=== PATIENT | male | born 2000 | race Caucasian/White ===

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

== ENCOUNTER 2019-12-02 13:14 | Emergency (ER) | payer OTHER, SELFPAY ==
[2018-12-30 10:44] VITALS: BMI 30.3
[2019-12-02 13:15] VITALS: BP 135/82; PULSE 90; RESP 17; TEMP 36.1; O2SAT 96; BMI 35.0
--- NOTE | 2019-12-02 13:42 | CT_ITS ---
STUDY: CT ABDOMEN AND PELVIS WITH CONTRAST REASON FOR EXAM: Male, 19 years old. ABDOMINAL PAIN RIGHT UPPER AND MID ABDOMEN RADIATION DOSAGE (If Supplied By Facility): CTDIvol = ( 16.16 ) mGy, DLP = ( 1234.06 ) mGycm TECHNIQUE: Transaxial images were obtained from the dome of the diaphragm to the symphysis pubis with oral contrast. Oral and amp; IV Gastrografin and amp; 100mL Isovue-300 was administered. Sagittal and coronal images were reconstructed. Individualized dose optimization techniques were used for this CT. COMPARISON: None. FINDINGS: FINDINGS: The visualized lung bases are unremarkable. Normal liver. No intrahepatic biliary duct dilatation or liver mass. Normal gallbladder and extrahepatic biliary system. Normal spleen. Normal pancreas. Normal bilateral adrenal glands. Normal right kidney. Normal left kidney. No hydronephrosis or renal masses. No large stones. Normal visualized stomach. Normal small intestine. Mild thickening of the wall of the proximal transverse colon in the right upper quadrant noted. Mild thickening is also seen in the distal transverse colon and proximal aspect of the descending colon likely due to nonspecified colitis. No bowel dilatation or obstruction. No free air or free fluid. The appendix is visualized and appears normal. Normal abdominal aorta. Normal inferior vena cava. Normal retroperitoneum. Normal urinary bladder. Normal abdominal wall. Normal osseous structures. CT/Abdomen/Pelvis WITH Contrast IMPRESSION: 1. Mild thickening of the wall of the proximal transverse colon in the right upper quadrant noted. Mild thickening is also seen in the distal transverse colon and proximal aspect of the descending colon likely due to nonspecified colitis. 2. No bowel dilatation or obstruction. No free air or free fluid. Electronically Signed: Arturo Tobin MD at 16:55 EDT , Service support ,
--- NOTE | 2019-12-02 13:43 | ED.DCSUM_ITS ---
History of Present Illness Chief Complaint: Abd Pain Informant: Patient Narrative: Patient presents the emergency room with a 2-day history of abdominal pain. Patient states the pain comes in waves and is situated in his epigastrium and occasionally goes to his back into the right upper quadrant. He states [facility] and was advised to come to emergency as he may have appendicitis or gallbladder allergy. Patient denies any nausea vomiting. No fevers. Patient notes normal bowel movements. He states that earlier in the day he had a large slice of pizza which made his symptoms worse. Past Medical History - Allergies and Home Meds Allergies/Adverse Reactions: Allergies No Known Allergies Allergy (Verified 12/02/19 13:14) Primary Care Physician: Mario Larios DO [Primary Care Provider] - Smoking Status: Current every day smoker Review of Systems General: Denies: Chills, Fever, Sweats Eyes: Denies: Visual changes - bilaterally, Diplopia ENT: Denies: Rhinorrhea, Sore throat Cardiovascular: Denies: Chest pain, Palpitations Respiratory: Denies: Dyspnea, Cough, Dyspnea on exertion Gastrointestinal: Reports: Abdominal pain. Denies: Nausea, Vomiting, Diarrhea, Melena, Hematochezia Genitourinary: Denies: Dysuria, Hematuria, Frequency Musculoskeletal: Denies: Back pain, Extremity Pain Skin: Denies: Rash, Wounds Neurological: Denies: Headache, Weakness, Numbness Physical Exam Vital Signs/Narrative: Vital Signs Temp Pulse Resp BP Pulse Ox 12/02/19 13:15 96.9 F L 90 17 135/82 H 96 Inital Vital Signs reviewed: Yes General: Well nourished, Well developed, No Acute Distress Head: Normocephalic, Atraumatic Eyes: Perrl, EOMI ENT: Moist mucous membranes, No rhinorrhea Neck: Supple, Nontender Cardiovascular: Regular rate, Regular rhythm, No murmurs Respiratory: No distress, CTA bilaterally, Chest nontender Abdomen: Soft, Nondistended, Normal bowel sounds, Tender - Patient reports tenderness to palpation of the right lower quadrant. He has no pain over the right upper quadrant or epigastrium on initial examination. Back: Nontender, Normal Inspection Extremities: Nontender, No edema Skin: Normal color, No rash Neurological: Alert, Oriented x3, Cranial nerves II-XII grossly intact, Normal Strength, Normal Sensation Psychological: Normal affect, Normal Mood Diagnostic/Tx/Re-eval Laboratory Last Values WBC 10.0 K/mm3 (4.4-11.0) 12/02/19 13:41 RBC 4.96 M/mm3 (4.6-6.2) 12/02/19 13:41 Hgb 14.9 g/dL (13.0-16.5) 12/02/19 13:41 Hct 45.0 % (40-54) 12/02/19 13:41 MCV 90.7 fL (80-94) 12/02/19 13:41 MCH 30.0 pg (27.0-32.0) 12/02/19 13:41 MCHC 33.1 g/dL (32-36) 12/02/19 13:41 RDW Std Deviation 40.3 fl (35.1-43.9) 12/02/19 13:41 RDW Coeff of Beverly 12.2 % (11.6-14.6) 12/02/19 13:41 Plt Count 212 K/mm3 (150-450) 12/02/19 13:41 MPV 10.3 fl (6.2-12.0) 12/02/19 13:41 Immature Gran % (Auto) 0.200 % (0.0-0.9) 12/02/19 13:41 Neut % (Auto) 64.8 % (47-70) 12/02/19 13:41 Lymph % (Auto) 23.6 % (19-41) 12/02/19 13:41 Baker % (Auto) 6.7 % (0-10) 12/02/19 13:41 Eos % (Auto) 4.4 % (0-5) 12/02/19 13:41 Baso % (Auto) 0.3 % (0-1) 12/02/19 13:41 Absolute Neuts (auto) 6.4 X10^3/uL (2.0-7.7) 12/02/19 13:41 Absolute Lymphs (auto) 2.35 X10^3/uL (0.83-4.51) 12/02/19 13:41 Nucleated RBC % 0 % (0-5) 12/02/19 13:41 Sodium 140 mmol/L (136-145) 12/02/19 13:41 Potassium 4.0 mmol/L (3.5-5.1) 12/02/19 13:41 Chloride 107 mmol/L (98-107) 12/02/19 13:41 Carbon Dioxide 27.0 mmol/L (21.0-32.0) 12/02/19 13:41 Anion Gap 6 (5-15) 12/02/19 13:41 BUN 19 mg/dL (7-18) H 12/02/19 13:41 Creatinine 0.99 mg/dL (0.70-1.30) 12/02/19 13:41 Estim Creat Clear Calc 119.02 ml/min 12/02/19 13:41 Est GFR (MDRD) Af Amer 123 mL/min (>60) 12/02/19 13:41 Est GFR (MDRD) Non-Af 102 mL/min (>60) 12/02/19 13:41 BUN/Creatinine Ratio 19.2 RATIO (10-20) 12/02/19 13:41 Glucose 94 mg/dL (74-106) 12/02/19 13:41 Calcium 9.4 mg/dL (8.5-10.1) 12/02/19 13:41 Total Bilirubin 0.40 mg/dL (0.20-1.00) 12/02/19 13:41 AST 18 U/L (15-37) 12/02/19 13:41 ALT 30 U/L (16-61) 12/02/19 13:41 Alkaline Phosphatase 93 U/L (45-117) 12/02/19 13:41 Total Protein 8.0 g/dL (6.4-8.2) 12/02/19 13:41 Albumin 4.1 g/dL (3.2-5.0) 12/02/19 13:41 Globulin 3.9 g/dL (2.2-4.2) 12/02/19 13:41 Albumin/Globulin Ratio 1.1 RATIO (0.9-2.4) 12/02/19 13:41 Lipase 51 U/L (73-393) L 12/02/19 13:41 Urine Color Yellow (Yellow) 12/02/19 13:30 Urine Clarity Clear (Clear) 12/02/19 13:30 Urine pH 6.0 (5.0 - 8.0) 12/02/19 13:30 Ur Specific Greene 1.025 (1.002-1.030) 12/02/19 13:30 Urine Protein Negative mg/dl (Negative) 12/02/19 13:30 Urine Glucose (UA) Normal mg/dl (Normal) 12/02/19 13:30 Urine Ketones Negative mg/dl (Negative) 12/02/19 13:30 Urine Occult Blood Negative /ul (Negative) 12/02/19 13:30 Urine Nitrite Negative (Negative) 12/02/19 13:30 Urine Bilirubin Negative mg/dL (Negative) 12/02/19 13:30 Urine Urobilinogen Normal mg/dl (Normal) 12/02/19 13:30 Ur Leukocyte Esterase Negative /ul (Negative) 12/02/19 13:30 Urine RBC 0 SEEN /hpf (0-5) 12/02/19 13:30 Urine WBC 0-5 SEEN /hpf (0-5) 12/02/19 13:30 Ur Squamous Epith Cells 0 SEEN /hpf (0-5) 12/02/19 13:30 Urine Bacteria RARE /hpf (None Seen) 12/02/19 13:30 Urine Mucus 0 SEEN /hpf (<or=2+) 12/02/19 13:30 ED Disposition - Plan for ED Patient: Disposition: Home or Assisted Living Diagnosis: Colitis Instructions: ED Colitis Ulcerative Prescriptions: Amox/Clavulanate Tablet [Augmentin Tablet] 875 mg PO Q12H #20 tab Prescription Printed Hydrocodone Bitart/Apap 5-325 [Drew 5MG-325MG] 1 tab PO Q6H PRN PRN 3 Days #12 tab PRN Reason: Pain Prescription Printed Ondansetron [Zofran Odt] 4 mg PO Q8H PRN PRN #10 tab PRN Reason: Nausea Prescription Printed Referrals: Mario Larios, [Primary Care Provider] - As soon as possible Vinnie Banks MD [NON-STAFF] - As soon as possible Additional Instructions: Her concern today is that you do have colitis on CT. Given your age we are concerned about conditions such as ulcerative colitis or Crohn's disease. You really need to see a computer project manager and have a formal colonoscopy. Locally Dr. Banks is a computer project manager here in [place]. In [place] there are numerous options including the [facility]
[2019-12-02 13:52] LABS: Absolute Lymphocyte Count 2.35 X10^3/uL (0.83-4.51); Absolute Neutrophil Count 6.4 X10^3/uL (2.0-7.7); Basophil# 0.03 X10^3/uL; Basophil% 0.3 % (0-1); Eosinophil# 0.44 X10^3/uL; Eosinophils% 4.4 % (0-5); Hemoglobin 14.9 g/dL (13.0-16.5); Lymphocyte # 2.35 X10^3/ul (4.0); Lymphocyte % 23.6 % (19-41); Mean Corp Hgb Conc 33.1 g/dL (32-36); Mean Corpuscular Volume 90.7 fL (80-94); Mean Platelet Vol. 10.3 fl (6.2-12.0); Monocyte# 0.67 X10^3/uL; Monocyte% 6.7 % (0-10); NRBC Flagged by Analyzer 0 % (0-5); Neutrophil # 6.44 X10^3/uL (2.7-7.7); Neutrophil % 64.8 % (47-70); Platelet Count 212 K/mm3 (150-450); RBC Distribution Width CV 12.2 % (11.6-14.6); RBC Distribution Width SD 40.3 fl (35.1-43.9); Red Blood Count 4.96 M/mm3 (4.6-6.2)
[2019-12-02] MEDS: 0.9% Normal Saline 1,000 ML 125 ML IV (13:56)
[2019-12-02] MEDS: Ketorolac 30 MG/ML Syringe IV (13:56)
[2019-12-02 14:07] LABS: ALB/GLOB Ratio 1.1 RATIO (0.9-2.4); AST(SGOT) 18 U/L (15-37); Alanine Aminotransfer ALT/SGPT 30 U/L (16-61); Albumin, Serum 4.1 g/dL (3.2-5.0); Alkaline Phosphatase 93 U/L (45-117); Anion Gap 6 (5-15); BUN 19 mg/dL (7-18); BUN/Creat Ratio 19.2 RATIO (10-20); Calcium,Total 9.4 mg/dL (8.5-10.1); Chloride 107 mmol/L (98-107); Creatinine, Serum 0.99 mg/dL (0.70-1.30); EST Glomerular Filtration Rate 102 mL/min (>60); Est Glom Filt Rate - Afr Amer 123 mL/min (>60); Estimated Creatinine Clearance 119.02 ml/min; Globulin 3.9 g/dL (2.2-4.2); Glucose 94 mg/dL (74-106); Lipase 51 U/L (73-393); Sodium Level 140 mmol/L (136-145)
[2019-12-02 15:06] LABS: Mucous, Urine 0 SEEN /hpf (<or=2+); Red Blood Cells-Urine 0 SEEN /hpf (0-5); Squamous Epithelial Cells - UA 0 SEEN /hpf (0-5)
[2019-12-02 15:19] LABS: Color, Urine Yellow (Yellow); Glucose, Dipstick Normal (Normal); Ketone-Dipstick Negative (Negative); Leukocyte Esterase-Dipstick Negative /ul (Negative); Nitrite-Dipstick Negative (Negative); Occult Blood-Urine Negative /ul (Negative); Protein-Dipstick Negative (Negative); Specific Gravity, Urine 1.025 (1.002-1.030); Urine Bilirubin Dipstick Negative (Negative); Urine Clarity Clear (Clear); Urine Urobilinogen Normal (Normal)
[2019-12-02 15:26] LABS: Bacteria RARE /hpf (None Seen); White Blood Cells 0-5 SEEN /hpf (0-5)
[2019-12-02 16:36] VITALS: BP 137/87; O2SAT 96
[2019-12-02 17:26] VITALS: BP 128/93; PULSE 81; RESP 16; O2SAT 96
== END 2019-12-02 17:27 | disposition home or self-care (01) ==
PROVIDERS: Emergency Provider Emergency Medicine; PCP Family Medicine
DX: K52.9 Noninfective gastroenteritis and colitis, unspecified (principal); F17.200 Nicotine dependence, unspecified, uncomplicated; Z79.899 Other long term (current) drug therapy
CPT/HCPCS: 74177; 80053; 81001; 83690; 85025; 96361; 96374; 99283; J7030; Q9967; A4216

== ENCOUNTER 2020-12-17 10:08 | Emergency (ER) | payer OTHER, SELFPAY ==
[2020-12-17 10:09] VITALS: BP 157/103; PULSE 109; RESP 18; TEMP 36.6; O2SAT 100; BMI 35.6
--- NOTE | 2020-12-17 10:21 | EKG12_ITS ---
Test Reason : CP Blood Pressure : / mmHG Vent. Rate : 099 BPM Atrial Rate : 099 BPM P-R Int : 136 ms QRS Dur : 100 ms QT Int : 346 ms P-R-T Axes : 037 056 036 degrees QTc Int : 444 ms Normal sinus rhythm with sinus arrhythmia Normal ECG No previous ECGs available Confirmed by CRICKET PASCAL, KARLI ([id number]), script editor TOMYM STARKEY ([id number]) on 12/25/2020 8:41:26 AM Referred By: TAVARES Confirmed By:HIMA HARLEY MD
--- NOTE | 2020-12-17 10:25 | EDS_ITS ---
HPI History of Present Illness Chief Complaint: Chest Pain Informant: patient Onset/Context/Timing Onset: Weeks (Pain started 1 week ago while driving home) Activity at onset: sudden and rest Timing: Intermittent Quality: Positive for Aching and Tightness Location: Left Parasternal Current Severity: 6/10 Maximum Severity: 10/10 Worsened By: - (Possibly stress); Not Worsened By Exertion, Movement of Arm, Movement of Torso, Eating, Palpation, Breathing and Coughing Relieved By: Nothing Associated Symptoms: Positive for Nausea, Vomiting, Dyspnea and - (Diarrhea); Negative for Diaphoresis, Cough, Fever, Lightheadedness, Acid Reflux and Palpitations Narrative Narrative: Patient is a 20-year-old male with history of asthma who admits to smoking and drinking. He states he has a couple drinks a evening. He states last Thursday while driving home he developed chest discomfort. He states he was not anxious. Does have history of anxiety. He has not seen a physician in some time. Brother has history of Marfan syndrome. He states he was assessed at [facility] and told he is clear for Marfan's. He does report nausea and vomiting. He reports 6 loose stools per day. He describes the tightness as a band sensation left pectoral area. Does not radiate. The nausea and vomiting is not associated with the chest discomfort. Chest discomfort is varied in duration. Prior Similar Symptoms: No CVD Risk Factors: Positive for Smoking; Negative for Hypertension, Diabetes, Hypercholesterolemia and Family History 1' </=55 PE Risk Factors: Negative for Recent Travel/Surgery, Recent Immobilization, Prior DVT or PE and Cancer TAD Risk Factors: Positive for Family History; Negative for Marfan's Syndrome and Hypertension [facility] Medical History Colitis Home Medications NK 12/17/20 [History Last Taken Unknown] Allergy/AdvReac Type Severity Reaction Status Date / Time No Known Allergies Allergy Verified 12/02/19 13:14 Family History Brother Heart disease Aunt Cancer pancreatic Social History (Updated 12/17/20 @ 10:[address] Gilles Albright MD) household members: other details: Patient is single. current occupation: Patient owns his own business. Smoking Status: Current every day smoker tobacco type: cigarettes Tobacco: How many years used: 1 alcohol intake: current alcohol intake frequency: a few times a month substance use type: marijuana what type of physical activity do you participate in: other details: active lifestyle ROS ROS ED Constitutional Constitutional ED: Denies chills, fever(s), subjective or sweats Eyes Eyes: Reports none ENT ENT ED: Denies ear pain, rhinorrhea or sore throat Cardiovascular Cardiovascular: Reports as per HPI and chest pain; Denies orthopnea or paroxysmal nocturnal dyspnea Respiratory/Chest Respiratory/Chest: Reports dyspnea; Denies cough, dyspnea on exertion, orthopnea, paroxysmal nocturnal dyspnea or sputum Gastrointestinal Gastrointestinal: Reports abdominal pain, diarrhea, nausea and vomiting; Denies constipation or melena Genitourinary Genitourinary ED: Denies dysuria, hematuria or urinary frequency Musculoskeletal Musculoskeletal: Denies arthralgias, back pain, myalgias or neck pain Integumentary Denies rash Neurologic Neurologic: Reports weakness; Denies headache(s) or paresthesias Psychiatric Psychiatric: Reports anxiety; Denies depression Hematologic/Lymphatic Hematologic/Lymphatic: Denies easy bleeding or easy bruising EXAM Physical Exam Const Vital Signs: 12/17/20 10:09 12/17/20 11:56 Temperature 97.8 F Temperature Source Temporal Pulse Rate 109 H 69 Respiratory Rate 18 16 Blood Pressure 157/103 H 130/92 H Blood Pressure Mean 121 104 Pulse Ox 100 98 Oxygen Delivery Method Room Air Room Air Positive well nourished, well developed and obese General Appearance ED: well developed and NAD Nutritional Appearance: obese HEENT Reports TM's clear and dry mucous membranes normocephalic and atraumatic Tympanic Membrane ED: Yes TM's clear Mouth ED: Yes dry mucous membranes Mouth: dry mucous membranes Eyes PERRL and EOMs intact bilaterally General Eye ED: Negative for pale conjunctiva or scleral icterus Neck no lymphadenopathy, supple and no JVD Chest Wall inspection of chest normal and palpation of chest normal Resp normal respiratory effort and clear to auscultation bilaterally Cardio regular rate, regular rhythm, S1 normal heart sound and S2 normal heart sound GI normal to inspection, nondistended, normoactive bowel sounds, soft to palpation and non-tender Back/Spine no CVA tenderness and no thoracic nor lumbar tenderness Cervical Spine: Negative for cervical spine tenderness Extremity normal to inspection General Extremety ED: Negative for tenderness Neuro oriented x3, CN's II-XII intact bilaterally and no sensory deficits noted Sensorium / Orientation: awake and alert Psych mental status grossly normal Skin no rashes or lesions noted and no wounds General Skin Exam: jaundice Heart Score History: Slightly/Non-Suspicious ECG: Normal Age: </= 45 years Risk Factors: 1 or 2 Risk Factors Troponin: </= Normal Limit Score: 1 MDM MDM MDM Narrative Medical decision making narrative: Presents with atypical chest pain. This may be due to stress. Patient is PERC negative. Patient's other symptoms are due to viral illness. He denies exposure to anyone with Covid. He denies loss of taste or smell. Lab Data Attestation: I reviewed the patient's lab results. Lab results narrative: Troponin is normal. Patient was informed of his lab results. He was informed that his pressure is still slightly elevated and should follow-up with his doctor. Suspect this is due to anxiety. Labs: Laboratory Results - last 24 hr 12/17/20 12/17/20 10:44 10:44 WBC 8.3 RBC 5.19 Hgb 15.8 Hct 47.0 MCV 90.6 MCH 30.4 MCHC 33.6 RDW Std Deviation 41.0 RDW Coeff of Beverly 12.5 Plt Count 222 MPV 10.3 Immature Gran % (Auto) 0.500 Neut % (Auto) 62.1 Lymph % (Auto) 28.2 Saline % (Auto) 6.3 Eos % (Auto) 2.3 Baso % (Auto) 0.6 Absolute Neuts (auto) 5.1 Absolute Lymphs (auto) 2.33 Nucleated RBC % 0 Sodium 137 Potassium 4.1 Chloride 105 Carbon Dioxide 27.0 Anion Gap 5 BUN 14 Creatinine 1.05 Estim Creat Clear Calc 111.29 Est GFR (MDRD) Af Amer 114 Est GFR (MDRD) Non-Af 94 BUN/Creatinine Ratio 13.3 Glucose 97 Calcium 9.4 Troponin I High Sens 3 EKG Initial EKG: Attestation: I personally reviewed and interpreted this EKG as follows: Interpretation: Sinus Rhythm (Respiratory variance/sinus arrhythmia. Normal sinus rhythm with a ventricular rate of 99. MD interval 236 ms. QRS duration 100 ms. QT duration 346 ms. [place] is normal.) Discharge Plan Triage Chief Complaint: Chest Pain ED Provider: Gilles Albright Dx/Rx/DC Orders Clinical Impression: Non-cardiac chest pain, Anxiety, High blood pressure Instructions: ED Chest Pain, Noncardiac, ED Hypertension, To Be Confirmed Prescriptions: No Action NK RF: 0 Primary Care Provider: Mario Larios Referrals: Mario Larios, [Primary Care Provider] - 1-2 Weeks Disposition Disposition: Home, Self Care
[2020-12-17] MEDS: 0.9% Normal Saline 1,000 ML 1000 ML IV (10:48)
[2020-12-17 10:52] LABS: Absolute Lymphocyte Count 2.33 X10^3/uL (0.83-4.51); Absolute Neutrophil Count 5.1 X10^3/uL (2.0-7.7); Basophil# 0.05 X10^3/uL; Basophil% 0.6 % (0-1); Eosinophil# 0.19 X10^3/uL; Eosinophils% 2.3 % (0-5); Hemoglobin 15.8 g/dL (13.0-16.5); Lymphocyte # 2.33 X10^3/ul (0.83-4.51); Lymphocyte % 28.2 % (19-41); Mean Corp Hgb Conc 33.6 g/dL (32-36); Mean Corpuscular Hgb 30.4 pg (27.0-32.0); Mean Corpuscular Volume 90.6 fL (80-94); Mean Platelet Vol. 10.3 fl (6.2-12.0); Monocyte# 0.52 X10^3/uL; Monocyte% 6.3 % (0-10); NRBC Flagged by Analyzer 0 % (0-5); Neutrophil # 5.14 X10^3/uL (2.7-7.7); Neutrophil % 62.1 % (47-70); Platelet Count 222 K/mm3 (150-450); RBC Distribution Width CV 12.5 % (11.6-14.6); Red Blood Count 5.19 M/mm3 (4.6-6.2); White Blood Count 8.3 K/mm3 (4.4-11.0)
[2020-12-17 11:10] LABS: Anion Gap 5 (5-15); BUN 14 mg/dL (7-18); BUN/Creat Ratio 13.3 RATIO (10-20); Calcium,Total 9.4 mg/dL (8.5-10.1); Chloride 105 mmol/L (98-107); Creatinine, Serum 1.05 mg/dL (0.70-1.30); EST Glomerular Filtration Rate 94 mL/min (>60); Est Glom Filt Rate - Afr Amer 114 mL/min (>60); Estimated Creatinine Clearance 111.29 ml/min; Glucose 97 mg/dL (74-106); Potassium 4.1 mmol/L (3.5-5.1); Sodium Level 137 mmol/L (136-145); Troponin-I HS 3 pg/mL (3.0-78.0)
[2020-12-17 11:56] VITALS: BP 130/92; PULSE 69; RESP 16; O2SAT 98
[2020-12-17 12:20] VITALS: BP 138/100; PULSE 78; RESP 16; O2SAT 99
== END 2020-12-17 12:21 | disposition home or self-care (01) ==
PROVIDERS: Emergency Provider Emergency Medicine; PCP Family Medicine
DX: R07.89 Other chest pain (principal); F41.9 Anxiety disorder, unspecified; R03.0 Elevated blood-pressure reading, without diagnosis of hypertension; F17.210 Nicotine dependence, cigarettes, uncomplicated; F12.10 Cannabis abuse, uncomplicated
CPT/HCPCS: 80048; 84484; 85025; 93005; 96360; 96361; 99285; J7030; A4216; J2405

== ENCOUNTER → 2020-12-21 07:56 | Outpatient (CLI) | payer OTHER, SELFPAY ==
[2020-12-21 12:32] LABS: Vitamin B12 709 pg/mL (211-911); Vitamin D,25 Hydroxy 31.9 ng/mL
[2020-12-21 12:34] LABS: Thyroid Stim Hormone (TSH) 1.62 uIU/mL (0.358-3.74)
== END ==
LOC: BIMLAB 07:57
PROVIDERS: PCP Family Medicine; Referring Provider Nurse Practitioner Family; Visit Provider Nurse Practitioner Family
DX: G47.10 Hypersomnia, unspecified (principal); I10 Essential (primary) hypertension
CPT/HCPCS: 36415; 82306; 82607; 84443

== ENCOUNTER → 2020-12-29 10:41 | Outpatient (CLI) | payer OTHER, SELFPAY ==
--- NOTE | 2020-12-29 10:44 | US_ITS ---
STUDY: THYROID ULTRASOUND REASON FOR EXAM: Male, 20 years old. THYROMEGALY TECHNIQUE: Ultrasound evaluation of the thyroid was performed with real-time and static carson-scale imaging. COMPARISON: None. FINDINGS: RIGHT LOBE: The right lobe of the thyroid gland measures 5.3 x 1.8 x 1.8 cm. There is a homogeneous echotexture. There are no demonstrated solid, cystic or complex lesions. LEFT LOBE: The left lobe of the thyroid gland measures 4.6 x 1.5 x 1.5 cm. There is a homogeneous echotexture. There are no demonstrated solid, cystic or complex lesions. ISTHMUS: The isthmus measures 3 mm. US/Thyroid IMPRESSION: Normal ultrasound examination of the thyroid. Electronically Signed: Brandon Mckeon MD at 4:17 EDT Tel , Service support ,
== END ==
PROVIDERS: PCP Family Medicine; Referring Provider Nurse Practitioner Family; Visit Provider Nurse Practitioner Family
DX: E01.0 Iodine-deficiency related diffuse (endemic) goiter (principal)
CPT/HCPCS: 76536

== ENCOUNTER → 2021-01-01 09:00 | Outpatient (CLI) | payer OTHER, SELFPAY | LOC: SL 09:27 | PROVIDERS: PCP Family Medicine; Referring Provider Nurse Practitioner Family; Visit Provider Nurse Practitioner Family | DX: G47.10 Hypersomnia, unspecified (principal); I10 Essential (primary) hypertension | CPT/HCPCS: 95806 ==

== ENCOUNTER → 2021-02-11 | Outpatient (CLI) | payer OTHER, SELFPAY | END | disposition home or self-care (01) | LOC: LABSPEC 15:27 | PROVIDERS: PCP Nurse Practitioner Family; Referring Provider Otolaryngology; Visit Provider Otolaryngology | DX: Z11.59 Encounter for screening for other viral diseases (principal); Z03.818 Encounter for observation for suspected exposure to other biological agents ruled out | CPT/HCPCS: 87635; U0005; U0003 ==

== ENCOUNTER → 2021-02-19 | Outpatient (CLI) | payer OTHER, SELFPAY ==
--- NOTE | 2021-02-19 | TONS_PTH ---
PATIENT: RY SIMPSON LOC: [facility] #:[id number] AGE/SX: 20/M ROOM: RE02/19/[address]: Dr. Eros Jones MD : 2000 BED: DIS: 02/19/2021 SPEC #: [id number] RECD: 02/19/21 15:09 STATUS: HALIE MOLINA #: [id number] CASSY: 02/19/21 00:[address]: Eros Jones DEPT: SURGICAL PATHOLOGY RECD BY: Chintan Isaac ENTERED: 02/20/21 09:20 SP TYPE: TONSILS OTHR DR: MARLA Mata [facility] Tissues: Tonsil, NOS Procedures: Surgery Specimen Level III HEADER OPERATION: Tonsillectomy PRE-OP DIAGNOSIS: Tonsillitis TISSUE SUBMITTED: Bilateral tonsils, pin on right MICROSCOPIC DIAGNOSIS Right and left tonsils, bilateral tonsillectomies: Reactive lymphoid hyperplasia, consistent with chronic tonsillitis. Focal actinomyces colonization. AM:salud 02/21/2021 MICROSCOPIC DESCRIPTION Slides are reviewed. GROSS DESCRIPTION Received is one container labeled with the patient's name and designated tonsils - pin on right are two tonsils that in aggregate weigh 14.2 gm. The right tonsil has a pin on it and measures 3.5 x 2.5 x 1.5 cm. The left tonsil measures 4 x 2 x 1.5 cm. Both tonsils are similar in appearance. The external surfaces are pink-cardona, smooth, glistening and somewhat lobulated. Focally they are hemorrhagic, granular and bear cautery artifact. Serial cross sections through the tonsils reveal normal tonsillar architecture. Sections are submitted in two cassettes as follows: 1 - right tonsil, 2 - left tonsil. / SJ:salud 02/20/21 TC:3 CPT: 13843 x2
== END | disposition home or self-care (01) ==
LOC: LABSPEC 15:51
PROVIDERS: PCP Nurse Practitioner Family; Referring Provider Otolaryngology; Visit Provider Otolaryngology
DX: J35.1 Hypertrophy of tonsils (principal)
CPT/HCPCS: 88304

== ENCOUNTER 2022-06-12 08:04 | Emergency (ER) | payer OTHER, SELFPAY ==
[2022-06-12 08:05] VITALS: BP 165/115; PULSE 116; RESP 16; TEMP 35.8; O2SAT 100; BMI 34.2
--- NOTE | 2022-06-12 08:51 | RAD_ITS ---
STUDY: X-RAY CHEST REASON FOR EXAM: Male, 22 years old. One-week history of cold symptoms. TECHNIQUE: PA and lateral views of the chest. COMPARISON: None. FINDINGS: EKG electrodes are seen. The lungs are clear and expanded. There is no demonstrated pleural abnormality. Normal size heart. Normal mediastinum and ward. Normal visualized pulmonary arteries. Normal visualized aortic arch and descending thoracic aorta. Normal visualized thoracic spine. Normal visualized ribs, clavicles, and shoulders. There is no demonstrated abnormality of the visualized soft tissue structures of the upper abdomen. RAD/Chest PA and Lateral IMPRESSION: Normal x-ray examination of the chest. Electronically Signed: Cristobal Hernandez MD at 9:57 EST ,
--- NOTE | 2022-06-12 08:51 | EKG12_ITS ---
Test Reason : Blood Pressure : / mmHG Vent. Rate : 082 BPM Atrial Rate : 082 BPM P-R Int : 146 ms QRS Dur : 102 ms QT Int : 362 ms P-R-T Axes : 044 060 032 degrees QTc Int : 422 ms Normal sinus rhythm Normal ECG Confirmed by OLGA PASCAL, GABRIEL ([id number]), web editor TOMMY STARKEY ([id number]) on 06/13/2022 12:42:17 PM Referred By: CECELIA Confirmed By:GABRIEL ESPINOZA MD
[2022-06-12 09:07] VITALS: PULSE 83; RESP 12; O2SAT 98
[2022-06-12 09:10] LABS: Absolute Lymphocyte Count 1.73 X10^3/uL (0.83-4.51); Basophil# 0.02 X10^3/uL; Basophil% 0.3 % (0-1); Eosinophil# 0.18 X10^3/uL; Eosinophils% 2.8 % (0-5); Hematocrit 48.1 % (40-54); Hemoglobin 16.3 g/dL (13.0-16.5); Lymphocyte # 1.73 X10^3/ul (0.83-4.51); Lymphocyte % 27.1 % (19-41); Mean Corp Hgb Conc 33.9 g/dL (32-36); Mean Corpuscular Hgb 31.2 pg (27.0-32.0); Mean Platelet Vol. 10.2 fl (6.2-12.0); Monocyte# 0.44 X10^3/uL; Monocyte% 6.9 % (0-10); NRBC Flagged by Analyzer 0 % (0-5); Neutrophil # 3.98 X10^3/uL (2.7-7.7); Neutrophil % 62.4 % (47-70); Platelet Count 182 K/mm3 (150-450); RBC Distribution Width CV 11.9 % (11.6-14.6); RBC Distribution Width SD 40.2 fl (35.1-43.9); Red Blood Count 5.23 M/mm3 (4.6-6.2); White Blood Count 6.4 K/mm3 (4.4-11.0)
[2022-06-12] MEDS: 0.9% Normal Saline 1,000 ML 1000 ML IV (09:10)
[2022-06-12] MEDS: hydrOXYzine PAM 25 MG Capsule PO (09:10)
[2022-06-12 09:24] LABS: D-Dimer Quantitative (DVT/PE) < 0.27 FEU/ug/m (0.27-0.49)
[2022-06-12 09:27] LABS: Anion Gap 9 (5-15); BUN 16 mg/dL (7-18); BUN/Creat Ratio 16.8 RATIO (10-20); Calcium,Total 9.7 mg/dL (8.5-10.1); Chloride 103 mmol/L (98-107); Creatinine, Serum 0.95 mg/dL (0.70-1.30); EST Glomerular Filtration Rate 104 mL/min (>60); Est Glom Filt Rate - Afr Amer 126 mL/min (>60); Estimated Creatinine Clearance 120.93 ml/min; Glucose 104 mg/dL (74-106); Sodium Level 138 mmol/L (136-145); Troponin-I HS < 3 pg/mL (3.0-78.0)
[2022-06-12 09:37] VITALS: PULSE 91; RESP 16; O2SAT 97
--- NOTE | 2022-06-12 10:35 | EDS_ITS ---
HPI History of Present Illness Chief Complaint: Cold Sx Informant: patient Onset/Context/Timing Onset: Days (2) Context: Gradual Onset Timing: Continuous Quality: Flopping Location: Chest Worsened by: Nothing Relieved by: Nothing Narrative Narrative: Patient presents with palpitations that have been getting worse over the past 2 days. Patient describes the sensation as flopping in his chest. Patient states this comes and goes. Patient states he has a history of anxiety and this is making his anxiety worse. Patient states he is coughing up some yellow sputum. Patient admits to some nasal congestion and headache earlier this week. Patient admits to some nausea, vomiting, diarrhea. Patient admits to some subjective chills but denies any fevers. [facility] Medical History (Updated 06/12/22 @ 10:[address] Nhan Smith DO) Colitis HTN (hypertension) Hypersomnia MARIAM (obstructive sleep apnea) Thyromegaly Home Medications propranolol 60 mg capsule,24 hr,extended release 60 mg PO QHS #90 caps 12/21/20 [Rx Last Taken Unknown] Allergy/AdvReac Type Severity Reaction Status Date / Time No Known Allergies Allergy Verified 06/12/22 08:07 Family History Brother Heart disease Aunt Cancer pancreatic Surgical History (Updated 06/12/22 @ 10:[address] Nhan Smith DO) History of tonsillectomy and adenoidectomy Social History household members: other details: Patient is single. current occupation: Patient owns his own business. Smoking Status: Current every day smoker tobacco type: cigarettes Tobacco: How many years used: 1 alcohol intake: current alcohol intake frequency: a few times a month substance use type: marijuana what type of physical activity do you participate in: other details: active lifestyle ROS ROS ED Constitutional Constitutional ED: Reports chills and subjective; Denies fever(s) Eyes Eyes: Denies blurry vision or change in vision ENT ENT ED: Reports ear pain, rhinorrhea and sore throat Cardiovascular Cardiovascular: Reports palpitations; Denies chest pain Respiratory/Chest Respiratory/Chest: Reports cough and sputum; Denies dyspnea Gastrointestinal Gastrointestinal: Reports diarrhea, nausea and vomiting Genitourinary Genitourinary ED: Denies dysuria or hematuria Musculoskeletal Musculoskeletal: Denies back pain or neck pain Integumentary Denies abscess or rash Neurologic Neurologic: Reports headache(s) and weakness Allergic/Immunologic Allergic/Immunologic ED: Denies mouth swelling or urticaria EXAM Physical Exam Const Vital Signs: 06/12/22 08:05 06/12/22 09:07 06/12/22 09:07 Temperature 96.4 F L Temperature Source Temporal Pulse Rate 116 H 83 Respiratory Rate 16 12 Respiratory Effort Short of Breath Blood Pressure 165/115 H Blood Pressure Mean 131 Pulse Ox 100 98 Oxygen Delivery Method Room Air Room Air 06/12/22 09:37 Temperature Temperature Source Pulse Rate 91 Respiratory Rate 16 Respiratory Effort Blood Pressure Blood Pressure Mean Pulse Ox 97 Oxygen Delivery Method Positive well nourished and well developed General Appearance ED: well developed HEENT Reports moist mucous membranes Neck supple and no JVD Resp normal respiratory effort and clear to auscultation bilaterally Cardio regular rate, regular rhythm and no murmurs GI normal to inspection, nondistended, normoactive bowel sounds and non-tender Palpation: soft Extremity normal to inspection General Extremety ED: Negative for edema or tenderness General Extremity: Negative for edema Neuro oriented x3, CN's II-XII intact bilaterally and no sensory deficits noted Sensorium / Orientation: alert Motor Exam: strength 5/5 throughout Psych mental status grossly normal Skin no rashes or lesions noted MDM MDM MDM Narrative Medical decision making narrative: Differential diagnosis includes cardiac dysrhythmia, cardiac ischemia, electrolyte abnormality, COVID infection, influenza infection, other viral infection, pneumonia, and pulmonary embolism. EKG will be obtained to assess for cardiac dysrhythmia and cardiac ischemia. CBC will be obtained to assess for leukocytosis and anemia. Basic metabolic profile will be obtained to assess for electrolyte abnormality and renal function. Troponin will be obtained to assess for cardiac ischemia. D-dimer will be obtained to assess for pulmonary embolism. Chest x-ray will be obtained to assess for pneumonia. COVID-19 rapid antigen will be obtained to assess for COVID infection. Influenza A and B antigens will be obtained to assess for influenza infection. Lab Data Lab results narrative: CBC was reviewed and was within normal limits. Basic metabolic profile was reviewed and was within normal limits. D-dimer was reviewed and was normal. High-sensitivity troponin was reviewed and was normal. COVID-19 rapid antigen was reviewed and was negative. Influenza A and influenza B rapid antigens were reviewed and were negative. Labs: Laboratory Results - last 24 hr 06/12/22 06/12/22 06/12/22 09:00 09:00 09:00 WBC 6.4 RBC 5.23 Hgb 16.3 Hct 48.1 MCV 92.0 MCH 31.2 MCHC 33.9 RDW Std Deviation 40.2 RDW Coeff of [place] 11.9 Plt Count 182 MPV 10.2 Immature Gran % (Auto) 0.500 Neut % (Auto) 62.4 Lymph % (Auto) 27.1 [place] % (Auto) 6.9 Eos % (Auto) 2.8 Baso % (Auto) 0.3 Absolute Neuts (auto) 4.0 Absolute Lymphs (auto) 1.73 Nucleated RBC % 0 D-Dimer Quant (PE/DVT) < 0.27 L Sodium 138 Potassium 4.0 Chloride 103 Carbon Dioxide 26.0 Anion Gap 9 BUN 16 Creatinine 0.95 Estim Creat Clear Calc 120.93 Est GFR (MDRD) Af Amer 126 Est GFR (MDRD) Non-Af 104 BUN/Creatinine Ratio 16.8 Glucose 104 Calcium 9.7 Troponin I High Sens < 3 L Radiography Chest X-Ray - ED: 1 View, Read by ED Physician, Read by Radiologist, Normal and No Acute Disease Diagnostic Testing: Clinical Impression(s) from Imaging Studies Chest X-Ray 06/12/22 08:51 IMPRESSION: Normal x-ray examination of the chest. Electronically Signed: Cristobal Hernandez MD at 9:57 EST , EKG Initial EKG: Attestation: I personally reviewed and interpreted this EKG as follows: Interpretation: Sinus Rhythm (82) and No Acute Injury Pattern Comments: EKG was obtained. On my independent interpretation, it showed a normal sinus rhythm with a rate of 82. PA interval, QRS interval, and QTc intervals were all normal. Accord was normal. There are no acute ST or T wave changes. Prior EKG tracings: available for review Prior: Unchanged (12/17/2020) Treatment and Re-Evaluation Narrative: Patient was given a dose of hydroxyzine here. Patient was advised of his findings. Patient was instructed to follow-up with his primary care physician for further evaluation. Patient was instructed return if worse in any way. Patient understood and was agreeable with the plan. All questions were answered. Discharge Plan Triage Chief Complaint: Cold Sx ED Provider: Nhan Smith Dx/Rx/DC Orders Clinical Impression: Heart palpitations, Anxiety Instructions: ED Palpitations Prescriptions: No Action propranolol 60 mg capsule,extended release 24 hr 60 mg PO QHS Qty: 90 1RF Primary Care Provider: Derick Michelle NP Referrals: Derick Michelle NP, [employer] [facility] [Primary Care Provider] - 3-5 Days Disposition Disposition: Home, Self Care
[2022-06-12 10:49] VITALS: BP 134/62; PULSE 71; RESP 15; O2SAT 98
== END 2022-06-12 10:49 | disposition home or self-care (01) ==
PROVIDERS: Emergency Provider Emergency Medicine; PCP Nurse Practitioner Family; Visit Provider Emergency Medicine
DX: R00.2 Palpitations (principal); F41.9 Anxiety disorder, unspecified; R19.7 Diarrhea, unspecified; R09.81 Nasal congestion; I10 Essential (primary) hypertension; Z20.822 Contact with and (suspected) exposure to COVID-19; R11.2 Nausea with vomiting, unspecified; G47.33 Obstructive sleep apnea (adult) (pediatric); F17.210 Nicotine dependence, cigarettes, uncomplicated
CPT/HCPCS: 71046; 80048; 84484; 85025; 85379; 87428; 93005; 96360; 99284; J7030; A4216

== ENCOUNTER → 2022-06-19 | Outpatient (CLI) | payer OTHER, SELFPAY ==
[2022-06-19 11:41] LABS: Bacteria 0 SEEN /hpf (None Seen); Mucous, Urine 0 SEEN /hpf (<or=2+); Red Blood Cells-Urine 0 SEEN /hpf (0-5); Squamous Epithelial Cells - UA 0 SEEN /hpf (0-5); White Blood Cells 0 SEEN /hpf (0-5)
[2022-06-19 12:13] LABS: Color, Urine Yellow (Yellow); Glucose, Dipstick Normal (Normal); Ketone-Dipstick Negative (Negative); Leukocyte Esterase-Dipstick Negative /ul (Negative); Nitrite-Dipstick Negative (Negative); Occult Blood-Urine Negative /ul (Negative); Protein-Dipstick Negative (Negative); Urine Bilirubin Dipstick Negative (Negative); Urine Clarity Clear (Clear); Urine Urobilinogen Normal (Normal)
[2022-06-19 12:27] LABS: Vitamin B12 573 pg/mL (211-911); Vitamin D,25 Hydroxy 20.9 ng/mL
[2022-06-19 12:36] LABS: Cholesterol 223 mg/dL (200); High Density Lipoprotein 46 mg/dL; Thyroid Stim Hormone (TSH) 1.63 uIU/mL (0.358-3.74); Triglycerides 451 mg/dL
[2022-06-20 13:33] LABS: Lyme Scn Total Ab w/Rflx Negative (Negative)
== END | disposition home or self-care (01) ==
PROVIDERS: PCP Nurse Practitioner Family; Referring Provider Nurse Practitioner Family; Visit Provider Nurse Practitioner Family
DX: I10 Essential (primary) hypertension (principal); G47.10 Hypersomnia, unspecified; F41.9 Anxiety disorder, unspecified; R53.83 Other fatigue; E56.9 Vitamin deficiency, unspecified; T63.891A Toxic effect of contact with other venomous animals, accidental (unintentional), initial encounter
CPT/HCPCS: 36415; 80061; 81001; 82306; 82607; 84443; 86618

== ENCOUNTER → 2022-06-20 | Outpatient (CLI) | payer OTHER, SELFPAY | END | disposition home or self-care (01) | LOC: LABSPEC 11:20 | PROVIDERS: PCP Nurse Practitioner Family; Referring Provider Nurse Practitioner Family; Visit Provider Nurse Practitioner Family | DX: R19.7 Diarrhea, unspecified (principal) | CPT/HCPCS: 87506 ==

== ENCOUNTER 2022-06-21 04:59 | Inpatient (IN) | payer SELFPAY ==
[2022-06-21] VITALS (7 sets, daily range): BP systolic 124–151; BP diastolic 69–101; PULSE 62–103; RESP 14–18; TEMP 36.6–37.3; O2SAT 97–99; BMI 31.8; BMI 32.1
--- NOTE | 2022-06-21 05:22 | CT_ITS ---
EXAM: CT ABDOMEN AND PELVIS WITH INTRAVENOUS CONTRAST CLINICAL INDICATION: Diarrhea, Pain TECHNIQUE: Helically acquired images were obtained of the abdomen and pelvis with intravenous contrast. This CT exam was performed using one or more of the following dose reduction techniques: automated exposure control, adjustment of the mA and/or kV according to patient size, and/or use of iterative reconstruction technique. This report was created using Go800 report generation technology. CONTRAST: 100 cc of Isovue-370 IV. RADIATION DOSE: CTDIvol = 18.93 mGy, DLP = 1287.32 mGy-cm. COMPARISON: 12/02/2019. FINDINGS: LOWER THORAX: Unremarkable. Lung bases are clear. No cardiomegaly. No significant pericardial effusion. ABDOMEN: LIVER: There is diffuse low-attenuation of the liver. GALLBLADDER AND BILE DUCTS: Unremarkable. No calcified gallstones. No gallbladder distention or wall edema. No intra- or extrahepatic biliary ductal dilation. PANCREAS: Unremarkable. No focal cystic or solid mass. SPLEEN: Unremarkable. Normal size without focal cystic or solid mass. ADRENALS: Unremarkable. No nodules. KIDNEYS AND URETERS: Unremarkable. Normal renal size and position. No hydronephrosis. STOMACH AND BOWEL: Unremarkable. No stomach or bowel distention. No focal inflammatory change. PELVIS: APPENDIX: Normal appendix. BLADDER: Unremarkable. REPRODUCTIVE: Unremarkable as visualized. No mass. ABDOMEN and PELVIS: INTRAPERITONEAL SPACE: Unremarkable. No ascites or other fluid collection. No free air. BONES/JOINTS: Unremarkable. No suspicious lytic or blastic abnormality. SOFT TISSUES: Unremarkable. No discrete abdominal or pelvic wall hernia. VASCULATURE: Unremarkable. Abdominal aorta is non-dilated. LYMPH NODES: Unremarkable. No enlarged lymph nodes. CT/Abdomen/Pelvis W IV Cont ONLY IMPRESSION: 1. Fatty liver. 2. No acute abdominal pelvic abnormality. Electronically Signed: Brayan Wolf MD at 6:55 EST ,
--- NOTE | 2022-06-21 05:23 | EX.ED.DYSGE1 ---
HPI History of Present Illness Chief Complaint: General Illness Narrative Narrative: 22-year-old male past medical history of alcohol dependency, hypertension, anxiety, was seen in the emergency department 9 days ago for anxiety, presents with nausea, vomiting, diarrhea, and for alcohol detox. He states that approximately 4 days ago, he was put on Augmentin for an ear infection. He developed nausea, but now has diarrhea. In the last 24 hours, he has had 4-5 episodes of nonbloody stool. He has vomited half a dozen times. No hematemesis. He states that he also wants detox from alcohol. He got up to go to the bathroom this evening, and I felt like I was dying. He has diffuse abdominal pain. He also noted that his blood pressure was elevated. He usually drinks vodka, at least 5-6 drinks daily. His last drink was at 8 PM yesterday, approximately 9 hours ago. He has never been through detox or rehab for alcohol. [facility] Medical History Alcohol dependency Colitis Diarrhea Fatigue HTN (hypertension) Hypersomnia MARIAM (obstructive sleep apnea) Thyromegaly Tick bite Home Medications cefdinir 300 mg capsule 300 mg PO BID #20 caps 06/19/22 [Rx Last Taken Unknown] escitalopram oxalate 10 mg tablet (Lexapro) 10 mg PO DAILY #90 tabs 06/19/22 [Rx Last Taken Unknown] lisinopril 10 mg tablet 10 mg PO QDAY #30 tabs 06/19/22 [Rx Last Taken Unknown] Allergy/AdvReac Type Severity Reaction Status Date / Time No Known Allergies Allergy Verified 06/19/22 09:20 Family History Brother Heart disease Aunt Cancer pancreatic Surgical History History of tonsillectomy and adenoidectomy Social History household members: other details: Patient is single. current occupation: Patient owns his own business. Smoking Status: Current every day smoker tobacco type: cigarettes Tobacco: How many years used: 1 alcohol intake: current alcohol intake frequency: a few times a month substance use type: marijuana what type of physical activity do you participate in: other details: active lifestyle ROS ROS ED ROS Narrative Constitutional: No fever, no chills. HEENT: No sore throat. No neck pain. No loss of vision. No rhinorrhea. Cardiovascular: No chest pain. No palpitations. No pedal edema. Respiratory: No cough, no shortness of breath. Abdominal: Positive abdominal pain. Positive nausea, vomiting, and diarrhea, bloody. No hematemesis. No melena or hematochezia. Genitourinary: No dysuria. No hematuria. Musculoskeletal: No myalgias. No arthralgias. Neurologic: No headaches. No dizziness. No lightheadedness. Skin: No rash. No change in color. Psychiatric: No depression. No anxiety. EXAM Physical Exam Narrative Exam Narrative: Afebrile. Vital signs noted. HEENT: Normocephalic. Atraumatic. PERRL, EOMI. Neck soft and supple. No point tenderness or step off. Cardiovascular: Regular rate and rhythm with intermittent tachycardia. No murmurs, rubs, or gallops appreciated. Respiratory: No tachypnea. Lungs clear to auscultation bilaterally. Gastrointestinal: Abdomen soft, nontender, with normoactive bowel sounds. No rebound or guarding. Neurological: Awake. Alert. Nonfocal, nonlateralizing. Skin: No rash. Normal color. No pallor. Musculoskeletal: No pedal edema. Full range of motion extremities. Const Vital Signs: 06/21/22 05:01 06/21/22 05:00 06/21/22 05:08 Temperature 98.3 F 98.4 F 98.3 F Temperature Source Temporal Temporal Temporal Pulse Rate 74 74 103 H Respiratory Rate 15 17 16 Blood Pressure 151/101 H 151/101 H 151/101 H Blood Pressure Mean 117 117 117 Pulse Ox 98 98 99 Oxygen Delivery Method Room Air Room Air Room Air MDM MDM MDM Narrative Medical decision making narrative: Comprehensive work-up was pursued, along with medical screening labs for detox. We will check his lipase to make sure he does not have a pancreatitis as the cause of his nausea and vomiting with abdominal pain. Additionally, we will check a CT of the abdomen pelvis to rule out a colitis. I do think that his nausea, vomiting, and diarrhea may be secondary to his Augmentin. He may have mild withdrawal symptoms given his intermittent tachycardia and elevated blood pressure. I reviewed the patient's laboratory work. He has a normal white count of 6.8, hemoglobin normal at 16.2, hematocrit 48.5. Normal platelet count of 241. CMP was obtained is grossly unremarkable with a normal sodium of 141 and a normal potassium of 4.0. BUN of 14 and creatinine 0.9. Glucose appropriately elevated at 109 with a normal anion gap of 14. Lipase is normal at 78. AST normal at 35 with ALT also normal at 53. I independently reviewed the CT imaging and see no evidence of an acute colitis or obstruction. I also reviewed the radiology report which confirms my interpretation. They commented on the fatty liver. In review of his blood alcohol level, it is slightly elevated at 18. He wanted something for his anxiety. I reviewed his prior record/ED visit and he had received Vistaril. As he is wishing detox I will avoid the use of benzodiazepines for now. Patient was discussed with the hospitalist for admission for detox. I do feel he is medically cleared. I discussed the patient with Dr. Alejandro. Disposition is admit in stable condition. History & Record Review Discussion w/independent historian: Patient Additional record(s) reviewed:: Prior ED visit and Prior labs Lab Data Attestation: I reviewed the patient's lab results. Labs: Laboratory Results - last 24 hr 06/21/22 06/21/22 06/21/22 05:30 05:30 05:30 WBC 6.8 RBC 5.26 Hgb 16.2 Hct 48.5 MCV 92.2 MCH 30.8 MCHC 33.4 RDW Std Deviation 40.0 RDW Coeff of [place] 11.8 Plt Count 241 MPV 9.9 Immature Gran % (Auto) 0.600 Neut % (Auto) 57.5 Lymph % (Auto) 32.5 [place] % (Auto) 6.3 Eos % (Auto) 2.2 Baso % (Auto) 0.9 Absolute Neuts (auto) 3.9 Absolute Lymphs (auto) 2.22 Nucleated RBC % 0 Sodium 141 Potassium 4.0 Chloride 103 Carbon Dioxide 24.0 Anion Gap 14 BUN 14 Creatinine 0.90 Estim Creat Clear Calc 135.96 Est GFR (MDRD) Af Amer 135 Est GFR (MDRD) Non-Af 112 BUN/Creatinine Ratio 15.6 Glucose 109 H Calcium 9.1 Total Bilirubin 0.50 AST 35 ALT 53 Alkaline Phosphatase 85 Total Protein 7.5 Albumin 3.8 Globulin 3.7 Albumin/Globulin Ratio 1.0 Lipase 78 Urine Opiates Screen Urine Methadone Screen Ur Barbiturates Screen Ur Phencyclidine Scrn Ur Amphetamines Screen MDMA (Ecstasy) Screen U Benzodiazepines Scrn Urine Cocaine Screen U Cannabinoids Screen Ur Drug Screen Comment Ethyl Alcohol 18.0 06/21/22 06:35 WBC RBC Hgb Hct MCV MCH MCHC RDW Std Deviation RDW Coeff of [place] Plt Count MPV Immature Gran % (Auto) Neut % (Auto) Lymph % (Auto) [place] % (Auto) Eos % (Auto) Baso % (Auto) Absolute Neuts (auto) Absolute Lymphs (auto) Nucleated RBC % Sodium Potassium Chloride Carbon Dioxide Anion Gap BUN Creatinine Estim Creat Clear Calc Est GFR (MDRD) Af Amer Est GFR (MDRD) Non-Af BUN/Creatinine Ratio Glucose Calcium Total Bilirubin AST ALT Alkaline Phosphatase Total Protein Albumin Globulin Albumin/Globulin Ratio Lipase Urine Opiates Screen NEGATIVE Urine Methadone Screen NEGATIVE Ur Barbiturates Screen NEGATIVE Ur Phencyclidine Scrn NEGATIVE Ur Amphetamines Screen NEGATIVE MDMA (Ecstasy) Screen NEGATIVE U Benzodiazepines Scrn NEGATIVE Urine Cocaine Screen NEGATIVE U Cannabinoids Screen NEGATIVE Ur Drug Screen Comment Ethyl Alcohol Radiography Diagnostic Testing: Clinical Impression(s) from Imaging Studies Abdomen/Pelvis CT 06/21/22 05:22 IMPRESSION: 1. Fatty liver. 2. No acute abdominal pelvic abnormality. Electronically Signed: Brayan Wolf MD at 6:55 EST , Discharge Plan Dx/Rx/DC Orders Clinical Impression: Nausea vomiting and diarrhea, Alcohol dependency, Desire for detoxification Disposition Disposition: Acute Care Hospital [facility]
[2022-06-21 05:37] LABS: Absolute Lymphocyte Count 2.22 X10^3/uL (0.83-4.51); Absolute Neutrophil Count 3.9 X10^3/uL (2.0-7.7); Basophil# 0.06 X10^3/uL; Basophil% 0.9 % (0-1); Eosinophil# 0.15 X10^3/uL; Eosinophils% 2.2 % (0-5); Hematocrit 48.5 % (40-54); Hemoglobin 16.2 g/dL (13.0-16.5); Lymphocyte # 2.22 X10^3/ul (0.83-4.51); Lymphocyte % 32.5 % (19-41); Mean Corp Hgb Conc 33.4 g/dL (32-36); Mean Corpuscular Hgb 30.8 pg (27.0-32.0); Mean Corpuscular Volume 92.2 fL (80-94); Mean Platelet Vol. 9.9 fl (6.2-12.0); Monocyte# 0.43 X10^3/uL; Monocyte% 6.3 % (0-10); NRBC Flagged by Analyzer 0 % (0-5); Neutrophil # 3.94 X10^3/uL (2.7-7.7); Neutrophil % 57.5 % (47-70); Platelet Count 241 K/mm3 (150-450); RBC Distribution Width CV 11.8 % (11.6-14.6); Red Blood Count 5.26 M/mm3 (4.6-6.2); White Blood Count 6.8 K/mm3 (4.4-11.0)
[2022-06-21] MEDS: 0.9% Normal Saline 1,000 ML 1000 ML IV (05:48)
[2022-06-21 05:54] LABS: AST(SGOT) 35 U/L (15-37); Alanine Aminotransfer ALT/SGPT 53 U/L (16-61); Albumin, Serum 3.8 g/dL (3.2-5.0); Alkaline Phosphatase 85 U/L (45-117); Anion Gap 14 (5-15); BUN 14 mg/dL (7-18); BUN/Creat Ratio 15.6 RATIO (10-20); Calcium,Total 9.1 mg/dL (8.5-10.1); Chloride 103 mmol/L (98-107); EST Glomerular Filtration Rate 112 mL/min (>60); Est Glom Filt Rate - Afr Amer 135 mL/min (>60); Estimated Creatinine Clearance 135.96 ml/min; Globulin 3.7 g/dL (2.2-4.2); Glucose 109 mg/dL (74-106); Lipase 78 U/L (73-393); Protein, Total 7.5 g/dL (6.4-8.2); Sodium Level 141 mmol/L (136-145)
[2022-06-21] MEDS: Ondansetron 4 MG/2 ML Vial IV (05:56)
[2022-06-21 06:59] LABS: Amphetamine Urine VISTA NEGATIVE (<1000 ng/mL); Barbiturate Urine VISTA NEGATIVE (< 200 ng/mL); Benzodiazepine Urine VISTA NEGATIVE (< 200 ng/mL); Cocaine Urine VISTA NEGATIVE (< 300 ng/mL); Ecstacy Urine VISTA NEGATIVE (< 500 ng/mL); Methadone Urine VISTA NEGATIVE (< 300 ng/mL); PCP Urine VISTA NEGATIVE (< 25 ng/mL); THC Urine VISTA NEGATIVE (< 50 ng/mL); Vista UDS pH Range 7
[2022-06-21] MEDS: hydrOXYzine PAM 25 MG Capsule 50 MG PO (07:32)
[2022-06-21 07:48] LABS: Bacteria 0 SEEN /hpf (None Seen); Mucous, Urine 0 SEEN /hpf (<or=2+); Red Blood Cells-Urine 0 SEEN /hpf (0-5); Squamous Epithelial Cells - UA 0 SEEN /hpf (0-5); White Blood Cells 0 SEEN /hpf (0-5)
[2022-06-21 08:13] LABS: Color, Urine Yellow (Yellow); Glucose, Dipstick Normal (Normal); Ketone-Dipstick 5 mg/dl (Negative); Leukocyte Esterase-Dipstick Negative /ul (Negative); Nitrite-Dipstick Negative (Negative); Occult Blood-Urine Negative /ul (Negative); Protein-Dipstick 15 mg/dl (Negative); Specific Gravity, Urine 1.015 (1.002-1.030); Urine Bilirubin Dipstick Negative (Negative); Urine Clarity Clear (Clear); Urine Urobilinogen Normal (Normal); Urine pH 6.5 (5.0 - 8.0)
--- NOTE | 2022-06-21 08:25 | PCM.HP.STD ---
HPI - General General Date of Admission: 06/21/22 Date of Service: 06/21/22 Chief Complaint: Intractable nausea and diarrhea HPI Narrative RY SIMPSON, is a 22 M history of alcohol abuse, anxiety, MARIAM who presented to [facility] 06/21/2022 with intractable nausea, vomiting, general malaise. He reports that his daughter had COVID 2 weeks ago and he has been feeling sick for 1 to 2 weeks with diarrhea and nausea, he tested negative for COVID at the time and began to feel better but within the past several days has had intractable nausea with emesis and diarrhea and poor p.o. intake and general malaise he feels like he is dying. Feels like he may have some shortness of breath and slight cough, is on antibiotics for an ear infection and was switched from Augmentin to cefdinir 2 days ago as he did not feel it was working. Has been having drenching sweats and a sore throat. In the ED exam, imaging, lab work-up unremarkable. He did endorse drinking daily and hospitalist called for admission for detox. When speaking with patient he reports that he is here for his intractable nausea, vomiting, poor p.o. intake but that he is willing to go through detox to feel better. He had been drinking for 2 years with drinking 6 vodka drinks daily for roughly 1 year which are tall glasses of 80 proof vodka. Drinks in the evening until he goes to bed and wakes up and goes to work and is functional during the day. Has never gone through withdrawal or detox. Over the past 1 to 2 weeks he has had escalated use because he reports that the only thing that makes his symptoms better but then in the morning he feels much worse. This feels generally unwell. [facility] Medical History Alcohol dependency Colitis Diarrhea Fatigue HTN (hypertension) Hypersomnia MARIAM (obstructive sleep apnea) Thyromegaly Tick bite Home Medications cefdinir 300 mg capsule 300 mg PO BID #20 caps 06/19/22 [Rx Last Taken Unknown] escitalopram oxalate 10 mg tablet (Lexapro) 10 mg PO DAILY #90 tabs 06/19/22 [Rx Last Taken Unknown] lisinopril 10 mg tablet 10 mg PO QDAY #30 tabs 06/19/22 [Rx Last Taken Unknown] Allergy/AdvReac Type Severity Reaction Status Date / Time No Known Allergies Allergy Verified 06/19/22 09:20 Family History Brother Heart disease Aunt Cancer pancreatic Surgical History History of tonsillectomy and adenoidectomy Social History household members: other details: Patient is single. current occupation: Patient owns his own business. Smoking Status: Current every day smoker tobacco type: cigarettes Tobacco: How many years used: 1 alcohol intake: current alcohol intake frequency: a few times a month substance use type: marijuana what type of physical activity do you participate in: other details: active lifestyle ROS ROS Narrative General: General malaise HENT: Some headache, stuffy nose, sore throat EYES: No unilateral vision changes Resp: Slight shortness of breath Cardiac: Denies chest pain GI: Nausea, vomiting, diarrhea, mild epigastric pain : Denies changes in urination Extremity: Denies swelling MSK: General weakness Neuro: Denies any numbness, thinks he might have some tingling in his feet possibly chronically Heme: Denies any bleeding or bruising Skin: Denies rashes Psychiatric: Does have anxiety Vital Signs Vital Signs Vital Signs: 06/21/22 05:01 06/21/22 05:00 06/21/22 05:08 Temperature 98.3 F 98.4 F 98.3 F Temperature Source Temporal Temporal Temporal Pulse Rate 74 74 103 H Respiratory Rate 15 17 16 Blood Pressure 151/101 H 151/101 H 151/101 H Blood Pressure Mean 117 117 117 Pulse Ox 98 98 99 Oxygen Delivery Method Room Air Room Air Room Air 06/21/22 07:33 Temperature 98.0 F Temperature Source Temporal Pulse Rate 62 Respiratory Rate 16 Blood Pressure 124/90 H Blood Pressure Mean 101 Pulse Ox 98 Oxygen Delivery Method Room Air Weight Weight: 103.6 kg Body Mass Index (BMI) 31.8 Physical Exam Narrative General: Alert, oriented, appears slightly unwell HEENT: Atraumatic, normocephalic Eyes: Anicteric, normal conjunctiva, extraocular movements grossly intact Neck: Supple Respiratory: Clear to auscultation bilaterally, normal respiratory effort Cardiovascular: Regular rate and rhythm GI: Soft, minimal tenderness in epigastric region without rebound, guarding, rigidity, nondistended Extremities: No edema Musculoskeletal: Moving all extremities Neuro: No overt focal neurological deficits Skin: No rashes appreciated Psych: Somewhat anxious Results Lab / Micro Data Result Diagrams: 06/21/22 05:30 06/21/22 05:30 Labs: Laboratory Results - last 24 hr 06/21/22 05:30: WBC 6.8, RBC 5.26, Hgb 16.2, Hct 48.5, MCV 92.2, MCH 30.8, MCHC 33.4, RDW Std Deviation 40.0, RDW Coeff of [place] 11.8, Plt Count 241, MPV 9.9, Immature Gran % (Auto) 0.600, Neut % (Auto) 57.5, Lymph % (Auto) 32.5, [place] % (Auto) 6.3, Eos % (Auto) 2.2, Baso % (Auto) 0.9, Absolute Neuts (auto) 3.9, Absolute Lymphs (auto) 2.22, Nucleated RBC % 0 06/21/22 05:30: Sodium 141, Potassium 4.0, Chloride 103, Carbon Dioxide 24.0, Anion Gap 14, BUN 14, Creatinine 0.90, Estim Creat Clear Calc 135.96, Est GFR (MDRD) Af Amer 135, Est GFR (MDRD) Non-Af 112, BUN/Creatinine Ratio 15.6, Glucose 109 H, Calcium 9.1, Total Bilirubin 0.50, AST 35, ALT 53, Alkaline Phosphatase 85, Total Protein 7.5, Albumin 3.8, Globulin 3.7, Albumin/Globulin Ratio 1.0, Lipase 78 06/21/22 05:30: Ethyl Alcohol 18.0 06/21/22 06:35: Urine Opiates Screen NEGATIVE, Urine Methadone Screen NEGATIVE, Ur Barbiturates Screen NEGATIVE, Ur Phencyclidine Scrn NEGATIVE, Ur Amphetamines Screen NEGATIVE, MDMA (Ecstasy) Screen NEGATIVE, U Benzodiazepines Scrn NEGATIVE, Urine Cocaine Screen NEGATIVE, U Cannabinoids Screen NEGATIVE, Ur Drug Screen Comment 06/21/22 06:35: Urine Color Yellow, Urine Clarity Clear, Urine pH 6.5, Ur Specific [place] 1.015, Urine Protein 15 H, Urine Glucose (UA) Normal, Urine Ketones 5 H, Urine Occult Blood Negative, Urine Nitrite Negative, Urine Bilirubin Negative, Urine Urobilinogen Normal, Ur Leukocyte Esterase Negative Radiology Impression Abdomen/Pelvis CT 06/21/22 05:22 IMPRESSION: 1. Fatty liver. 2. No acute abdominal pelvic abnormality. Electronically Signed: Brayan Wolf MD at 6:55 EST Reading Location ID and State: [address] [place] [address] Tel , Service support , Assessment & Plan Assessment/Plan (1) Nausea vomiting and diarrhea: (2) Desire for detoxification: PLAN: Plan #Intractable nausea, vomiting, diarrhea -Daughter recently with COVID/viral illness -Patient had been ill, tested negative for COVID, had begun improving but over this past week significantly worsened with worsening diarrhea and nausea and vomiting with poor p.o. intake -Had elevated cholesterol and triglycerides but lipase 78 and only minimal epigastric symptoms, do not feel this is pancreatitis -CT abdomen pelvis demonstrates fatty liver and no other abnormality -TSH within normal limits -UA unremarkable -U tox unremarkable -Hepatic panel within normal limits -EtOH level 18 -Recheck COVID and viral panel as well as enteric panel -Given several days of antibiotics on recent Augmentin use with worsening diarrhea will also check C. difficile -We will give fluids -Antiemetics #Alcohol abuse -Reports drinking daily for the past 1 to 2 years with escalated use over the past 2 weeks because he has not been feeling well -He did not present for detox but is open for detox though does not want inpatient or outpatient resources -Will give Librium taper detox -CIWA every 4 for 24 hours then every 6 for 24 hours then 12 until discharge -Gabapentin 300 mg every 8 as needed -Will start Bentyl and hydroxyzine as needed as well as loperamide as needed -Trazodone 100 mg p.o. nightly as needed sleep -Begin thiamine and folic acid supplementation -Case management consult to assist with discharge planning -EtOH 18 and drug screen negative #Left otitis media with perforation -Continue cefdinir 300 twice daily, this was switched from Augmentin because he did not feel is working #DVT ppx: Low risk ambulatory Lora Alejandro MD Time spent in the patient's overall evaluation,decision-making process, review of diagnostic data, adjustment of management, discussion with other providers, nursing nursing and ancillary staff involved in patient's care documentation, 60 minutes Charges/Coding Visit Charges Inpatient E&M: 72766 Init Hosp L2
[2022-06-21 10:44] LABS: Magnesium 2.2 mg/dL (1.6-2.6)
[2022-06-21] MEDS: Cefdinir 300 MG Capsule PO ×2 (11:07→21:56)
[2022-06-21] MEDS: chlordiazePOXIDE 25 MG Capsule PO ×3 (11:07→21:54)
[2022-06-21] MEDS: Lisinopril 10 MG Tablet PO (11:07)
[2022-06-21] MEDS: Escitalopram Oxalate 10 MG Tablet PO (11:07)
[2022-06-21] MEDS: Lactated Ringers 1,000 ML 100 ML IV ×2 (11:08→20:39)
[2022-06-21] MEDS: traZODone 100 MG Tablet PO (21:55)
[2022-06-21] MEDS: hydrOXYzine PAM 25 MG Capsule PO (21:55)
[2022-06-22 02:00] VITALS: BP 106/66; PULSE 65; RESP 14; TEMP 36.6; O2SAT 97
[2022-06-22] MEDS: chlordiazePOXIDE 25 MG Capsule PO ×4 (04:16→22:22)
[2022-06-22 06:00] VITALS: BMI 32.1
[2022-06-22 06:59] LABS: Absolute Lymphocyte Count 2.56 X10^3/uL (0.83-4.51); Absolute Neutrophil Count 3.5 X10^3/uL (2.0-7.7); Basophil# 0.05 X10^3/uL; Basophil% 0.7 % (0-1); Eosinophil# 0.18 X10^3/uL; Eosinophils% 2.6 % (0-5); Hematocrit 43.5 % (40-54); Hemoglobin 14.6 g/dL (13.0-16.5); Lymphocyte # 2.56 X10^3/ul (0.83-4.51); Lymphocyte % 37.6 % (19-41); Mean Corp Hgb Conc 33.6 g/dL (32-36); Mean Corpuscular Hgb 30.9 pg (27.0-32.0); Mean Platelet Vol. 10.4 fl (6.2-12.0); Monocyte# 0.52 X10^3/uL; Monocyte% 7.6 % (0-10); NRBC Flagged by Analyzer 0 % (0-5); Neutrophil # 3.47 X10^3/uL (2.7-7.7); Neutrophil % 51.1 % (47-70); Platelet Count 198 K/mm3 (150-450); RBC Distribution Width CV 11.5 % (11.6-14.6); Red Blood Count 4.73 M/mm3 (4.6-6.2); White Blood Count 6.8 K/mm3 (4.4-11.0)
--- NOTE | 2022-06-22 07:29 | PCM.PN.HOSP ---
Reason for Visit Reason for Visit: Diagnoses Nausea with vomiting, unspecified (06/21/22) Diarrhea, unspecified (06/21/22) Subjective Subjective Diarrhea and nausea improving, now tolerating food. Tolerating the Librium, still feels generally unwell but improving. Objective Data Objective Data Vital Signs: Vital Signs Temp Pulse Resp BP Pulse Ox O2 Del Method 97.9 F 65 14 106/66 97 Room Air 06/22/22 02:00 06/22/22 02:00 06/22/22 02:00 06/22/22 02:00 06/22/22 02:00 06/22/22 02:00 Oxygen Delivery Method Room Air Weight: 104.3 kg Body Mass Index (BMI) 32.1 Intake & Output: Intake and Output for Last 24 Hours 06/20/22 06/21/22 06/22/22 23:59 23:59 23:59 Intake Total 2500 / 2500 500 / 500 Balance 2500 / 2500 500 / 500 Lab / Micro Data Result Diagrams: 06/22/22 05:58 06/22/22 05:58 Labs: Laboratory Results - last 24 hr 06/21/22 05:30: Magnesium 2.2 06/21/22 06:35: Urine Color Yellow, Urine Clarity Clear, Urine pH 6.5, Ur Specific [place] 1.015, Urine Protein 15 H, Urine Glucose (UA) Normal, Urine Ketones 5 H, Urine Occult Blood Negative, Urine Nitrite Negative, Urine Bilirubin Negative, Urine Urobilinogen Normal, Ur Leukocyte Esterase Negative, Urine RBC 0 SEEN, Urine WBC 0 SEEN, Ur Squamous Epith Cells 0 SEEN, Urine Bacteria 0 SEEN, Urine Mucus 0 SEEN 06/21/22 11:15: COVID-19 (SMITH) Not Detected 06/22/22 05:58: WBC 6.8, RBC 4.73, Hgb 14.6, Hct 43.5, MCV 92.0, MCH 30.9, MCHC 33.6, RDW Std Deviation 39.0, RDW Coeff of [place] 11.5 L, Plt Count 198, MPV 10.4, Immature Gran % (Auto) 0.400, Neut % (Auto) 51.1, Lymph % (Auto) 37.6, [place] % (Auto) 7.6, Eos % (Auto) 2.6, Baso % (Auto) 0.7, Absolute Neuts (auto) 3.5, Absolute Lymphs (auto) 2.56, Nucleated RBC % 0 Micro: Microbiology 06/21/22 15:26 Mucosa - Nose Respiratory Panel (PCR) - Final 06/21/22 15:35 Stool C. difficile DNA Amplification - Final 06/21/22 11:32 Nasal Secretion SARS-CoV-2 & FLU Antigen (Rapid) - Final Physical Exam Narrative General: Alert, oriented, appears slightly unwell HEENT: Atraumatic, normocephalic Eyes: Anicteric, normal conjunctiva, extraocular movements grossly intact Neck: Supple Respiratory: Clear to auscultation bilaterally, normal respiratory effort Cardiovascular: Regular rate and rhythm GI: nondistended Extremities: No edema Musculoskeletal: Moving all extremities Neuro: No overt focal neurological deficits, no tremors in outstretched hands Skin: No rashes appreciated Psych: Cooperative Assessment & Plan Assessment/Plan (1) Nausea vomiting and diarrhea: (2) Desire for detoxification: PLAN: Plan #Intractable nausea, vomiting, diarrhea -Daughter recently with COVID/viral illness -Patient had been ill, tested negative for COVID, had begun improving but over this past week significantly worsened with worsening diarrhea and nausea and vomiting with poor p.o. intake -Had elevated cholesterol and triglycerides but lipase 78 and only minimal epigastric symptoms, do not feel this is pancreatitis -CT abdomen pelvis demonstrates fatty liver and no other abnormality -TSH within normal limits -UA unremarkable -U tox unremarkable -Hepatic panel within normal limits -EtOH level 18 -Recheck COVID and viral panel as well as enteric panel -Given several days of antibiotics on recent Augmentin use with worsening diarrhea will also check C. difficile -We will give fluids -Antiemetics -06/22: Continue Supportive care, workup negative #Alcohol abuse -Reports drinking daily for the past 1 to 2 years with escalated use over the past 2 weeks because he has not been feeling well -He did not present for detox but is open for detox though does not want inpatient or outpatient resources -Will give Librium taper detox -CIWA every 4 for 24 hours then every 6 for 24 hours then 12 until discharge -Gabapentin 300 mg every 8 as needed -Will start Bentyl and hydroxyzine as needed as well as loperamide as needed -Trazodone 100 mg p.o. nightly as needed sleep -Begin thiamine and folic acid supplementation -Case management consult to assist with discharge planning -EtOH 18 and drug screen negative -06/22: Continue taper #Left otitis media with perforation -Continue cefdinir 300 twice daily, this was switched from Augmentin because he did not feel is working #DVT ppx: Low risk ambulatory Lora Alejandro MD Time spent in the patient's overall evaluation,decision-making process, review of diagnostic data, adjustment of management, discussion with other providers, nursing nursing and ancillary staff involved in patient's care documentation, 26 minutes Charges/Coding Visit Charges Inpatient E&M: 61693 Subs Hosp L2
[2022-06-22 07:46] LABS: ALB/GLOB Ratio 1.1 RATIO (0.9-2.4); AST(SGOT) 26 U/L (15-37); Alanine Aminotransfer ALT/SGPT 38 U/L (16-61); Albumin, Serum 3.3 g/dL (3.2-5.0); Alkaline Phosphatase 78 U/L (45-117); Anion Gap 10 (5-15); BUN 16 mg/dL (7-18); BUN/Creat Ratio 15.8 RATIO (10-20); Calcium,Total 8.9 mg/dL (8.5-10.1); Chloride 106 mmol/L (98-107); Creatinine, Serum 1.01 mg/dL (0.70-1.30); EST Glomerular Filtration Rate 97 mL/min (>60); Est Glom Filt Rate - Afr Amer 118 mL/min (>60); Estimated Creatinine Clearance 121.15 ml/min; Globulin 2.9 g/dL (2.2-4.2); Glucose 102 mg/dL (74-106); Potassium 3.7 mmol/L (3.5-5.1); Protein, Total 6.2 g/dL (6.4-8.2); Sodium Level 142 mmol/L (136-145)
[2022-06-22] MEDS: Thiamine Hydrochloride 100 MG Tablet PO (09:00)
[2022-06-22] MEDS: Cefdinir 300 MG Capsule PO ×2 (09:00→22:22)
[2022-06-22] MEDS: Escitalopram Oxalate 10 MG Tablet PO (09:01)
[2022-06-22] MEDS: Folic Acid 1 MG Tablet PO (09:03)
[2022-06-22] MEDS: Lisinopril 10 MG Tablet PO (09:04)
[2022-06-22 10:00] VITALS: BP 117/77; PULSE 98; RESP 16; TEMP 36.7; O2SAT 96
--- NOTE | 2022-06-22 10:13 | ADDICTION ---
TW met with pt to complete ASAM, AUDIT, DUDIT, MSE, and begin d/c planning. Pt reports he wants to d/c home with no f/u care. Pt states his pentecostalism and family will be his support system. They will hold me accountable. I know I won't ever drink after this. TW offered education on alcohol and the addiction process and provided resources. Pt stated no transportation needs at this time due to his truck being in the parking lot. Pt expressed gratitude for this program. It's changed my life, I'm so thankful.
[2022-06-22] MEDS: hydrOXYzine PAM 25 MG Capsule PO (12:30)
[2022-06-22] MEDS: Ibuprofen 600 MG Tablet PO (13:40)
[2022-06-22 14:00] VITALS: BP 117/77; PULSE 70; RESP 16; TEMP 36.7; O2SAT 97
[2022-06-22] MEDS: Nicotine Polacrilex 2 MG GUM PO (14:09)
[2022-06-22] MEDS: Gabapentin 300 MG Capsule PO (15:58)
[2022-06-22 16:00] VITALS: BP 117/77; PULSE 70; RESP 16; TEMP 36.7; O2SAT 97
[2022-06-22 22:00] VITALS: BP 96/66; PULSE 77; RESP 14; TEMP 37; O2SAT 97
[2022-06-23 05:17] VITALS: BP 107/71; PULSE 67; RESP 14; TEMP 36.3; O2SAT 98
[2022-06-23 06:00] VITALS: BMI 31.8
[2022-06-23 06:22] LABS: Absolute Lymphocyte Count 2.36 X10^3/uL (0.83-4.51); Absolute Neutrophil Count 3.7 X10^3/uL (2.0-7.7); Basophil# 0.04 X10^3/uL; Basophil% 0.6 % (0-1); Eosinophil# 0.24 X10^3/uL; Eosinophils% 3.5 % (0-5); Hematocrit 44.8 % (40-54); Hemoglobin 15.3 g/dL (13.0-16.5); Lymphocyte # 2.36 X10^3/ul (0.83-4.51); Lymphocyte % 34.1 % (19-41); Mean Corp Hgb Conc 34.2 g/dL (32-36); Mean Corpuscular Hgb 31.5 pg (27.0-32.0); Mean Corpuscular Volume 92.2 fL (80-94); Mean Platelet Vol. 10.5 fl (6.2-12.0); Monocyte# 0.55 X10^3/uL; Monocyte% 7.9 % (0-10); NRBC Flagged by Analyzer 0 % (0-5); Neutrophil # 3.71 X10^3/uL (2.7-7.7); Neutrophil % 53.5 % (47-70); Platelet Count 209 K/mm3 (150-450); RBC Distribution Width CV 11.6 % (11.6-14.6); RBC Distribution Width SD 39.1 fl (35.1-43.9); Red Blood Count 4.86 M/mm3 (4.6-6.2); White Blood Count 6.9 K/mm3 (4.4-11.0)
[2022-06-23 09:00] VITALS: BP 119/77; PULSE 70; RESP 16; TEMP 36.9; O2SAT 96
[2022-06-23] MEDS: chlordiazePOXIDE 25 MG Capsule PO ×2 (09:03→21:07)
[2022-06-23] MEDS: Lisinopril 10 MG Tablet PO (09:03)
[2022-06-23] MEDS: Thiamine Hydrochloride 100 MG Tablet PO (09:03)
[2022-06-23] MEDS: Cefdinir 300 MG Capsule PO ×2 (09:03→21:06)
[2022-06-23] MEDS: Folic Acid 1 MG Tablet PO (09:03)
--- NOTE | 2022-06-23 13:59 | PN_ITS ---
Subjective Subjective Patient seen and examined. He had no active complaints and had an uneventful night. He is tolerating a diet. Review of systems is otherwise negative. He is tolerating a regular diet. He has remained hemodynamically stable. Objective Data Objective Data Vital Signs: Vital Signs Temp Pulse Resp BP Pulse Ox O2 Del Method 98.4 F 70 16 119/77 96 Room Air 06/23/22 09:00 06/23/22 09:00 06/23/22 09:00 06/23/22 09:00 06/23/22 09:00 06/23/22 09:00 Oxygen Delivery Method Room Air Weight: 228 lb 13.437 oz Body Mass Index (BMI) 31.8 Intake & Output: Intake and Output for Last 24 Hours 06/21/22 06/22/22 06/23/22 23:59 23:59 23:59 Intake Total 2500 / 2500 2100 / 2900 1900 / 1900 Output Total 400 / 400 Balance 2500 / 2500 1700 / 2500 1900 / 1900 Lab / Micro Data Result Diagrams: 06/23/22 05:42 06/22/22 05:58 Labs: Laboratory Results - last 24 hr 06/23/22 05:42: WBC 6.9, RBC 4.86, Hgb 15.3, Hct 44.8, MCV 92.2, MCH 31.5, MCHC 34.2, RDW Std Deviation 39.1, RDW Coeff of [place] 11.6, Plt Count 209, MPV 10.5, Immature Gran % (Auto) 0.400, Neut % (Auto) 53.5, Lymph % (Auto) 34.1, [place] % (Auto) 7.9, Eos % (Auto) 3.5, Baso % (Auto) 0.6, Absolute Neuts (auto) 3.7, Absolute Lymphs (auto) 2.36, Nucleated RBC % 0 06/23/22 05:42: Sodium Cancelled, Potassium Cancelled, Chloride Cancelled, Carbon Dioxide Cancelled, Anion Gap Cancelled, BUN Cancelled, Creatinine Cancelled, Estim Creat Clear Calc Cancelled, Est GFR (MDRD) Af Amer Cancelled, Est GFR (MDRD) Non-Af Cancelled, BUN/Creatinine Ratio Cancelled, Glucose Cancelled, Calcium Cancelled, Total Bilirubin Cancelled, AST Cancelled, ALT Cancelled, Alkaline Phosphatase Cancelled, Total Protein Cancelled, Albumin Cancelled, Globulin Cancelled, Albumin/Globulin Ratio Cancelled Micro: Microbiology 06/21/22 15:35 Stool Enteric Bacteriology - Final 06/21/22 15:35 Stool C. difficile DNA Amplification - Final 06/21/22 15:26 Mucosa - Nose Respiratory Panel (PCR) - Final 06/21/22 11:32 Nasal Secretion SARS-CoV-2 & FLU Antigen (Rapid) - Final Physical Exam Const alert, oriented x3 and no apparent distress General Appearance: cooperative HEENT normocephalic, head/scalp atraumatic, moist oral mucous membranes and oropharynx normal Eyes PERRL Neck supple Lymph Lymphatic: no lymphadenopathy noted Resp normal respiratory effort, normal air movement and clear to auscultation bilaterally Cardio regular rate, regular rhythm, S1 normal heart sound, S2 normal heart sound and no murmurs GI normal to inspection, nondistended, normoactive bowel sounds, soft to palpation, non-tender and non-distended Extremity normal capillary refill, no clubbing, cyanosis or edema and no calf tenderness Skin General Skin Exam: no breakdown and turgor normal Neuro CN's II-XII intact bilaterally, no focal motor deficits and no sensory deficits noted Motor Exam: strength 5/5 throughout Psych Appearance: appropriate Assessment & Plan Assessment/Plan (1) Nausea vomiting and diarrhea: (2) Desire for detoxification: (3) Alcohol withdrawal: PLAN: Plan #Intractable nausea, vomiting and diarrhea * has resolved. * now tolerating a diet. * will monitor * CT abdomen and pelvis showed fatty liver and no other abnormality. * #Acute alcohol withdrawal * says he does feel like hes in withdrawal * on alcohol withdrawal protocol with librium * on thiamine, folic acid and multivite * monitor CIWA score * #left otitis media with perforation: now on cefdinir as patient said augmentin was not working. DVT prophylaxis: low risk. Encourage ambulation. Disposition: plan is for discharge home tomorrow if he remains hemodynamically stable. Charges/Coding Visit Charges Inpatient E&M: 19571 Subs Hosp L2
--- NOTE | 2022-06-23 14:53 | CHAPLAIN ---
Type of Pastoral Visit _x__ Initial Visit ___ Follow-up Visit ___ On-call Visit ___ General Patient Visit ___ Spiritual Assessment ___ Family Conference ___ Bereavement ___ Rapid Response ___ Code Blue ___ Other (describe below) Pastoral Care Referral From _x__ Patient ___ Family ___ Nurse ___ Physician ___ Corrections Unit Supervisor ___ Special Systems Technician ___ Other (describe below) Sacrament/Intervention _x__ Active listening ___ Anointing ___ Sikh ___ Bereavement ___ Communion _x__ Rhea exploration ___ _x__ Life review _x__ Prayer ___ Reconciliation ___ Sacrament of Sick _x__ Supportive presence ___ Wedding ___ Other (describe below) Pastoral Comments patient is alert and very welcoming of spiritual care support and this face and fill packer; pt identifies himself as an ex Taoist, ex Mennontite, Non Confucianism born again Buddhism who has admitted a drinking addiction and in for recovery; pt is able to list many family members that are supportive of his recovery; 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
[2022-06-23 16:11] VITALS: BP 117/83; PULSE 97; RESP 18; TEMP 36.6; O2SAT 96
[2022-06-23] MEDS: hydrOXYzine PAM 25 MG Capsule PO (18:40)
[2022-06-23 20:53] VITALS: BP 134/77; PULSE 86; RESP 16; TEMP 36.8; O2SAT 96
[2022-06-24 01:45] VITALS: BP 105/74; PULSE 72; RESP 14; TEMP 36.9; O2SAT 97
[2022-06-24 04:57] VITALS: BMI 32.0
[2022-06-24 08:37] VITALS: BP 116/74; PULSE 92; RESP 16; TEMP 37.1; O2SAT 96
[2022-06-24] MEDS: Thiamine Hydrochloride 100 MG Tablet PO (08:45)
[2022-06-24] MEDS: Folic Acid 1 MG Tablet PO (08:45)
[2022-06-24] MEDS: hydrOXYzine PAM 25 MG Capsule PO (08:45)
[2022-06-24] MEDS: chlordiazePOXIDE 25 MG Capsule PO (08:45)
[2022-06-24] MEDS: Lisinopril 10 MG Tablet PO (08:46)
[2022-06-24] MEDS: Cefdinir 300 MG Capsule PO (08:46)
--- NOTE | 2022-06-24 10:31 | DCINST_ITS ---
Discharge Instructions Diet Discharge Diet: Low fat / Low cholesterol Activity Discharge Activity: Return to Normal Activity Weight Bearing Status: Weight bearing as tolerated Dressing / Incision Call your doctor if you observe: Fever of 101 or Higher, Shortness of breath, Dizziness, Swelling in the ankles, Chest pain and Increased palpitations (irregular heartbeat) Follow Up Care Test Results: Test results from this visit will be discussed in further detail at your follow- up appointment, if applicable. Discharge Plan Admission Admit Date/Time: 06/21/22 16:06 Primary Reason for Your Visit: acute alcohol withdrawal Attending Provider: Deepika Phelps Primary Care Provider: Derick Michelle NP Consulting Providers: Lora Alejandro Discharge Orders/Prescriptions Prescriptions: New hydroxyzine pamoate 25 mg Capsule 25 mg PO 4X/DAY PRN PRN (Reason: severe anxiety) Qty: 12 0RF cefdinir 300 mg Capsule 300 mg PO Q12 Qty: 10 0RF Continued escitalopram oxalate [Lexapro] 10 mg tablet 10 mg PO DAILY Qty: 90 1RF lisinopril 10 mg tablet 10 mg PO QDAY Qty: 30 11RF Discontinued cefdinir 300 mg capsule 300 mg PO BID Qty: 20 0RF Referrals / Follow Up: Derick Michelle NP, [employer] [Primary Care Provider] - Within 2 Weeks Disposition Disposition (needs filled in before D/C Order can be placed): Home, Self Care
--- NOTE | 2022-06-24 10:33 | DS.PCM_ITS ---
Providers Date of Admission: 06/21/22 Date of Discharge: 06/24/22 Primary Care Physician: Derick Michelle NP-C Reason For Visit: INTRACTABLE N/V/D Diagnosis Discharge Diagnosis (1) Nausea vomiting and diarrhea: Status: Acute Code(s): R11.2 - Nausea with vomiting, unspecified; R19.7 - Diarrhea, unspecified (2) Desire for detoxification: Status: Acute (3) Alcohol withdrawal: Status: Acute Code(s): F10.939 - Alcohol use, unspecified with withdrawal, unspecified Plan #Intractable nausea, vomiting and diarrhea * has resolved. * now tolerating a diet. * will monitor * CT abdomen and pelvis showed fatty liver and no other abnormality. * #Acute alcohol withdrawal * says he does feel like hes in withdrawal * on alcohol withdrawal protocol with librium * on thiamine, folic acid and multivite * monitor CIWA score * #left otitis media with perforation: now on cefdinir as patient said augmentin was not working. DVT prophylaxis: low risk. Encourage ambulation. Disposition: plan is for discharge home tomorrow if he remains hemodynamically stable. Medications at Discharge Home Medications escitalopram oxalate 10 mg tablet (Lexapro) 10 mg PO DAILY #90 tabs 06/19/22 lisinopril 10 mg tablet 10 mg PO QDAY #30 tabs 06/19/22 cefdinir 300 mg capsule 300 mg PO Q12 #10 caps 06/24/22 hydroxyzine pamoate 25 mg capsule 25 mg PO 4X/DAY PRN PRN severe anxiety #12 caps 06/24/22 Hospital Course Operations None Summary of Care Provided Minutes Spent on Discharge: 45 Hospital Course: Patient is a 22-year-old male with a past medical history as outlined which includes alcohol use disorder, anxiety and MARIAM. He was admitted through the ED on 06/21/2022 with a complaint of intractable nausea and vomiting as well as generalized malaise. He had been exposed to his daughter who acts COVID and also said he had some shortness of breath and slight cough. He had been on Augmentin for otitis media but this was switched to cefdinir as he did not think the Augmentin was working. Patient had also been drinking daily and said he had been drinking 6 vodka drinks daily for about 2 years prior to admission. He said his drinking had recently increased. he was admitted and managed for in tractable nausea and vomiting, as well as acue alcohol withdrawal. His nausea and vomiting resolved and he was able to tolerate an oral diet. He underwent 3- day detox process and tolerated it well. He remained stable and was discharged on 06/24/2022. He is to follow-up with his primary care doctor and to follow-up on outpatient basis with rehab services for his alcohol use disorder. Patient seen and examined. He had no active complaints and had an uneventful night. Review of systems otherwise negative. Labs and vitals reviewed. Home medication reviewed and reconciled. Patient was given a prescription for Vistaril at his request as he said it helped him sleep. Physical Exam Const alert, oriented x3 and no apparent distress General Appearance: cooperative Orientation / Consciousness: awake Exam Limitations: no limitations HEENT normocephalic, head/scalp atraumatic, hearing grossly normal bilaterally, moist oral mucous membranes and oropharynx normal Mouth: oral and palatal mucosa normal Eyes PERRL Neck no lymphadenopathy and supple Lymph Lymphatic: no lymphadenopathy noted Resp normal respiratory effort, normal air movement and clear to auscultation bilaterally Cardio regular rate, regular rhythm, S1 normal heart sound, S2 normal heart sound and no murmurs GI normal to inspection, nondistended, normoactive bowel sounds, soft to palpation, non-tender and non-distended Extremity normal to inspection, full ROM, normal capillary refill, no clubbing, cyanosis or edema and no calf tenderness Skin General Skin Exam: no breakdown and turgor normal Neuro oriented x3, CN's II-XII intact bilaterally, moves all extremities, no focal motor deficits and no sensory deficits noted Sensorium / Orientation: awake and alert Motor Exam: strength 5/5 throughout Psych affect normal Appearance: appropriate Weight / BMI Weight Weight: 228 lb 9.91 oz Body Mass Index (BMI) 32.0 ABG / Lab / Microbiology Data Result Diagrams: 06/23/22 05:42 06/22/22 05:58 Microbiology: Microbiology 06/21/22 15:35 Stool Enteric Bacteriology - Final 06/21/22 15:35 Stool C. difficile DNA Amplification - Final 06/21/22 15:26 Mucosa - Nose Respiratory Panel (PCR) - Final 06/21/22 11:32 Nasal Secretion SARS-CoV-2 & FLU Antigen (Rapid) - Final D/C Instructions Discharge Diet: Low fat / Low cholesterol Discharge Activity: Return to Normal Activity Weight Bearing Status: Weight bearing as tolerated Call your doctor if you observe: Fever of 101 or Higher, Shortness of breath, Dizziness, Swelling in the ankles, Chest pain and Increased palpitations (irregular heartbeat) Meaningful Use Info Meaningful Use Diagnoses (Choose all that apply): None applicable Discharge Plan Admission Admit Date/Time: 06/21/22 16:06 Primary Reason for Your Visit: acute alcohol withdrawal Attending Provider: Deepika Phelps Primary Care Provider: Derick Michelle NP Consulting Providers: Lora Alejandro Discharge Orders/Prescriptions Prescriptions: New hydroxyzine pamoate 25 mg Capsule 25 mg PO 4X/DAY PRN PRN (Reason: severe anxiety) Qty: 12 0RF cefdinir 300 mg Capsule 300 mg PO Q12 Qty: 10 0RF Continued escitalopram oxalate [Lexapro] 10 mg tablet 10 mg PO DAILY Qty: 90 1RF lisinopril 10 mg tablet 10 mg PO QDAY Qty: 30 11RF Discontinued cefdinir 300 mg capsule 300 mg PO BID Qty: 20 0RF Referrals / Follow Up: Derick Michelle NP, SERVICE ORDER DISPATCHER-C [Primary Care Provider] - Within 2 Weeks Disposition Disposition (needs filled in before D/C Order can be placed): Home, Self Care Charges/Coding Visit Charges Inpatient E&M: 07554 Disch Hosp >30min
--- NOTE | 2022-06-24 12:02 | PHA.DC.MR ---
Pharmacy Service has performed discharge medication reconciliation for this patient. The patient's discharge medication list was reviewed for discrepancies and discrepancies were resolved. Medication education papers prepared, patient discharged before I was able to prison classification counselor. Home Medications escitalopram oxalate 10 mg tablet (Lexapro) 10 mg PO DAILY #90 tabs 06/19/22 lisinopril 10 mg tablet 10 mg PO QDAY #30 tabs 06/19/22 cefdinir 300 mg capsule 300 mg PO Q12 #10 caps 06/24/22 hydroxyzine pamoate 25 mg capsule 25 mg PO 4X/DAY PRN PRN severe anxiety #12 caps 06/24/22
== END 2022-06-24 11:43 | disposition home or self-care (01) | DRG 897 ==
LOC: ED 07:02 → MS3 09:12
PROVIDERS: Admitting Provider Internal Medicine; Emergency Provider Emergency Medicine; PCP Nurse Practitioner Family; Visit Provider Student in an Organized Health Care Education/Training Program
DX: F10.130 Alcohol abuse with withdrawal, uncomplicated (principal); E78.00 Pure hypercholesterolemia, unspecified; R11.2 Nausea with vomiting, unspecified; I10 Essential (primary) hypertension; H66.92 Otitis media, unspecified, left ear; R19.7 Diarrhea, unspecified; H72.92 Unspecified perforation of tympanic membrane, left ear; F41.9 Anxiety disorder, unspecified; F17.210 Nicotine dependence, cigarettes, uncomplicated; Y90.0 Blood alcohol level of less than 20 mg/100 ml; Z20.822 Contact with and (suspected) exposure to COVID-19
CPT/HCPCS: 36415; 74177; 80053; 80307; 81001; 82077; 83690; 83735; 85025; 87428; 87493; 87506; 87633; 87635; 94668; 99284; J7120; Q9967; A4216; J2405; U0003; U0005

== ENCOUNTER 2024-05-31 10:28 | Emergency (ER) | payer SELFPAY ==
[2024-05-31 10:29] VITALS: BP 148/90; PULSE 68; RESP 20; TEMP 36.4; O2SAT 100; BMI 32.5
--- NOTE | 2024-05-31 10:38 | RAD_ITS ---
PROCEDURE: CHEST 1 VIEW (PORTABLE) REASON FOR EXAM: Chest pain. TECHNIQUE: Frontal view of the chest. COMPARISON: Chest x-ray of 06/12/2022 FINDINGS: The heart size is normal. The lungs are clear. No pleural effusion or pneumothorax is seen. No significant osseous changes noted. RAD/Chest 1 View (Portable) IMPRESSION: NEGATIVE CHEST. Reading Location: [id number]
--- NOTE | 2024-05-31 10:38 | EKG12_ITS ---
Test Reason : CP Blood Pressure : */* mmHG Vent. Rate : 80 BPM Atrial Rate : 80 BPM P-R Int : 150 ms QRS Dur : 100 ms QT Int : 364 ms P-R-T Axes : 48 35 35 degrees QTcB Int : 419 ms Normal sinus rhythm Incomplete right bundle branch block Borderline ECG Confirmed by Brayan Melvin ([id number]), slot editor LIAN HARTLEY ([id number]) on 06/01/2024 11:20:28 AM Referred By: Confirmed By: Brayan Melvin
[2024-05-31 12:33] LABS: Absolute Lymphocyte Count 2.38 X10^3/uL (0.83-4.51); Absolute Neutrophil Count 5.2 X10^3/uL (2.0-7.7); Basophil# 0.06 X10^3/uL; Basophil% 0.7 % (0-1); Eosinophil# 0.13 X10^3/uL; Eosinophils% 1.6 % (0-5); Hematocrit 46.2 % (40-54); Hemoglobin 15.8 g/dL (13.0-16.5); Lymphocyte # 2.38 X10^3/ul (0.83-4.51); Lymphocyte % 28.8 % (19-41); Mean Corp Hgb Conc 34.2 g/dL (32-36); Mean Corpuscular Hgb 30.3 pg (27.0-32.0); Mean Corpuscular Volume 88.7 fL (80-94); Mean Platelet Vol. 10.1 fl (6.2-12.0); Monocyte# 0.44 X10^3/uL; Monocyte% 5.3 % (0-10); NRBC Flagged by Analyzer 0 % (0-5); Neutrophil # 5.22 X10^3/uL (2.7-7.7); Neutrophil % 63.2 % (47-70); Platelet Count 211 K/mm3 (150-450); RBC Distribution Width CV 12.2 % (11.6-14.6); RBC Distribution Width SD 39.8 fl (35.1-43.9); Red Blood Count 5.21 M/mm3 (4.6-6.2); White Blood Count 8.3 K/mm3 (4.4-11.0)
--- NOTE | 2024-05-31 12:33 | RAD_ITS ---
PROCEDURE: LUMBAR SPINE 2 OR 3 VIEWS REASON FOR EXAM: Pain. TECHNIQUE: 2 view(s) of the lumbar spine COMPARISON: None. RAD/Lumbar Spine 2 or 3 Views IMPRESSION: Bilateral L5 spondylolysis with grade 1 L5 upon S1 spondylolisthesis is seen. Mild degenerative changes otherwise seen throughout the lumbar spine. No defin ite disc space narrowing is noted. Sacroiliac joints appear symmetric and within the normal range. No other fracture site is seen. Reading Location: [id number]
--- NOTE | 2024-05-31 12:34 | ED.VIS.CHEST ---
HPI History of Present Illness Chief Complaint: Chest Pain Narrative Narrative: 44-year-old male presents with multiple somatic complaints ranging from back pain for which she is seeing a chiropractor to chest pain and shortness of breath. He states he has not felt right over the last 3 days. 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 He tried to see his primary care provider but was unable to make an appointment. He presents with multiple complaints as stated previously into triage. He complains of generalized weakness as well. He relates history that he was seen in the emergency department a few years ago, and he had been having problems with alcohol but has weaned himself down to a few beers on occasion. [facility] Medical History Alcohol dependency Fatigue Diarrhea Tick bite MARIAM (obstructive sleep apnea) Thyromegaly Hypersomnia HTN (hypertension) Colitis Home Medications ?Medication ?Instructions ?Recorded ?Last Taken ?Type hydroxyzine pamoate 25 mg capsule 25 mg PO 4X/DAY PRN PRN severe 06/24/22 Unknown Rx anxiety #12 caps lisinopril 10 mg tablet See Rx Instructions .Route 07/11/22 Unknown Rx .COMPLEX #30 tabs hydroxyzine pamoate 25 mg capsule 25 mg PO TID PRN anxiety #20 caps 05/31/24 Unknown Rx Allergy/AdvReac Type Severity Reaction Status Date / Time No Known Allergies Allergy Verified 06/19/22 09:20 Family History Brother Heart disease Aunt Cancer pancreatic Surgical History History of tonsillectomy and adenoidectomy Social History household members: other details: Patient is single. current occupation: Patient owns his own business. Smoking Status: Current every day smoker tobacco type: cigarettes Tobacco: How many years used: 1 alcohol intake: current alcohol intake frequency: a few times a month substance use type: marijuana what type of physical activity do you participate in: other details: active lifestyle ROS ROS ED ROS Narrative Review of systems positive for generalized weakness, chest pain, palpitations, low back pain. No loss of bowel or bladder. Being treated by chiropractor for sciatica. EXAM Physical Exam Narrative Exam Narrative: Afebrile. Vital signs noted. Nontoxic-appearing. Cardiovascular examination reveals a regular rate and rhythm. Lungs are clear to auscultation bilaterally. Abdomen soft nontender. Neurological examination nonfocal and nonlateralizing. No vertebral point tenderness or bony step-off of his low back. Straight leg raising negative bilaterally. Patellar DTRs equal and symmetric. Const Vital Signs: 05/31/24 10:29 05/31/24 12:33 05/31/24 12:34 Temperature 97.5 F L Temperature Source Temporal Pulse Rate 68 Respiratory Rate 20 H Respiratory Effort Normal Respiratory Depth Normal Respiratory Pattern Normal Blood Pressure 148/90 H Blood Pressure Mean 109 Pulse Ox 100 Oxygen Delivery Method Room Air Room Air 05/31/24 12:59 05/31/24 14:00 05/31/24 14:35 Temperature Temperature Source Pulse Rate 85 72 84 Respiratory Rate 15 Respiratory Effort Respiratory Depth Respiratory Pattern Blood Pressure 128/82 H 116/72 111/65 Blood Pressure Mean 97 86 80 Pulse Ox 99 96 99 Oxygen Delivery Method Room Air Room Air Room Air Heart Score History: Slightly/Non-Suspicious ECG: Normal Age: </= 45 years Risk Factors: 1 or 2 Risk Factors Troponin: </= Normal Limit Score: 1 MDM MDM MDM Narrative Medical decision making narrative: Differential diagnosis includes but not limited to ACS versus dehydration versus chronic fatigue syndrome versus sciatica versus anxiety. While I see no red flag signs for cauda equina, patient is concerned about the pain in his low back that he is being treated by chiropractor for. I will obtain x-rays to rule out fracture. EKG obtained and interpreted by myself independently as normal sinus rhythm at 80 bpm without ectopy or acute ST changes. No STEMI. I reviewed his laboratory work and he has normal white count of 8.3 with hemoglobin normal at 15.8, hematocrit 46.2, platelet count normal at 211. Electrolyte panel is grossly unremarkable except for calcium slightly elevated at 10.2 with the upper end of normal being 10.1. I do not feel he needs treatment for hypercalcemia. Sodium normal at 140 with potassium normal at 4.1. Initial high-sensitivity troponin is less than 3 with repeat at 2 hours being 3 for an acceptable delta troponin. I do not feel that he is having ACS. Urinalysis obtained and is negative for infection. On my independent interpretation of his chest x-ray, there is no acute process, no pneumonia or pneumothorax. I reviewed the radiology report which confirms my independent interpretation. Additionally, on the x-rays of his lumbar spine on my independent interpretation there is no evidence of an acute fracture. I reviewed the radiology report which confirms my independent interpretation and comments on mild degenerative changes. He has bilateral L5 spondylolysis with grade 1 L5 on S1 spondylolisthesis. He is currently being treated by chiropractor. I do not feel narcotic pain medication is indicated for his low back pain. Additionally, what he described this morning sounds like something that he experienced previously with stress and anxiety. However, he states that he was never on any medication for anxiety although review of his EMR does show that he is supposed to be taking Vistaril or at least had in the past and that he was seen in the past for anxiety. I wrote him a prescription for Vistaril 25 mg to take 3 times a day as needed for anxiety. He will follow-up with his chiropractor and a primary care provider. I feel he can be discharged to follow-up. Disposition is discharged home in stable condition. History & Record Review Discussion w/independent historian: Patient Additional record(s) reviewed:: Prior ED visit Lab Data Attestation: I reviewed the patient's lab results. Labs: Laboratory Results - last 24 hr 05/31/24 05/31/24 05/31/24 12:25 14:07 14:30 WBC 8.3 RBC 5.21 Hgb 15.8 Hct 46.2 MCV 88.7 MCH 30.3 MCHC 34.2 RDW Std Deviation 39.8 RDW Coeff of Beverly 12.2 Plt Count 211 MPV 10.1 Immature Gran % (Auto) 0.400 Neut % (Auto) 63.2 Lymph % (Auto) 28.8 Blanco % (Auto) 5.3 Eos % (Auto) 1.6 Baso % (Auto) 0.7 Absolute Neuts (auto) 5.2 Absolute Lymphs (auto) 2.38 Nucleated RBC % 0 Sodium 140 Potassium 4.1 Chloride 105 Carbon Dioxide 28.0 Anion Gap 6 BUN 17 Creatinine 0.89 Estim Creat Clear Calc 156.98 Est GFR (MDRD) Af Amer 134 Est GFR (MDRD) Non-Af 111 BUN/Creatinine Ratio 19.2 Glucose 91 Calcium 10.2 H Troponin I High Sens < 3 L 3 Urine Color Yellow Urine Clarity Sl. Cloudy Urine pH 7.0 Ur Specific Stanley 1.010 Urine Protein Negative Urine Glucose (UA) Normal Urine Ketones 5 H Urine Occult Blood Negative Urine Nitrite Negative Urine Bilirubin Negative Urine Urobilinogen Normal Ur Leukocyte Esterase Negative Urine RBC 0 SEEN Urine WBC 0 SEEN Ur Squamous Epith Cells 0 SEEN Urine Bacteria 0 SEEN Urine Mucus 0 SEEN Radiography Diagnostic Testing: Clinical Impression(s) from Imaging Studies Chest X-Ray 05/31/24 10:38 IMPRESSION: NEGATIVE CHEST. Reading Location: [address] Lumbar Spine X-Ray 05/31/24 12:33 IMPRESSION: Bilateral L5 spondylolysis with grade 1 L5 upon S1 spondylolisthesis is seen. Mild degenerative changes otherwise seen throughout the lumbar spine. No definite disc space narrowing is noted. Sacroiliac joints appear symmetric and within the normal range. No other fracture site is seen. Reading Location: [address] Discharge Plan Triage Chief Complaint: Chest Pain Other Complaint: Shortness of Breath ED Provider: Deangelo Harden Dx/Rx/DC Orders Clinical Impression: Chest pain, Anxiety, Low back pain Instructions: ED Anxiety Reaction, ED Back Pain (Acute or Chronic), ED Chest Pain, Uncertain Cause Prescriptions: New hydroxyzine pamoate 25 mg capsule 25 mg PO TID PRN (Reason: anxiety) Qty: 20 0RF No Action hydroxyzine pamoate 25 mg Capsule 25 mg PO 4X/DAY PRN PRN (Reason: severe anxiety) Qty: 12 0RF lisinopril 10 mg tablet See Rx Instructions .ROUTE .COMPLEX Qty: 30 11RF Dose Instruction: TAKE 1 TABLET BY MOUTH EVERY DAY Rx Instructions: TAKE 1 TABLET BY MOUTH EVERY DAY Primary Care Provider: Derick Michelle [facility] Referrals: NOT,DEFINED [Non-Staff] - Activity Restrictions/Additional Instructions: Follow-up with your chiropractor regarding her low back pain. Take the Vistaril/hydroxyzine as needed for anxiety. Print Language: Namibian Disposition Disposition: Home, Self Care
[2024-05-31 12:54] LABS: Anion Gap 6 (5-15); BUN 17 mg/dL (7-18); BUN/Creat Ratio 19.2 RATIO (10-20); Calcium,Total 10.2 mg/dL (8.5-10.1); Chloride 105 mmol/L (98-107); Creatinine, Serum 0.89 mg/dL (0.70-1.30); EST Glomerular Filtration Rate 111 mL/min (>60); Est Glom Filt Rate - Afr Amer 134 mL/min (>60); Estimated Creatinine Clearance 156.98 ml/min; Glucose 91 mg/dL (74-106); Potassium 4.1 mmol/L (3.5-5.1); Sodium Level 140 mmol/L (136-145); Troponin-I HS (w/2H Reflex) < 3 pg/mL (3.0-78.0)
[2024-05-31 12:59] VITALS: BP 128/82; PULSE 85; O2SAT 99
[2024-05-31 14:00] VITALS: BP 116/72; PULSE 72; O2SAT 96
[2024-05-31 14:14] LABS: Bacteria 0 SEEN /hpf (None Seen); Mucous, Urine 0 SEEN /hpf (<or=2+); Squamous Epithelial Cells - UA 0 SEEN /hpf (0-5); White Blood Cells 0 SEEN /hpf (0-5)
[2024-05-31 14:22] LABS: Color, Urine Yellow (Yellow); Glucose, Dipstick Normal (Normal); Ketone-Dipstick 5 mg/dl (Negative); Leukocyte Esterase-Dipstick Negative /ul (Negative); Nitrite-Dipstick Negative (Negative); Occult Blood-Urine Negative /ul (Negative); Protein-Dipstick Negative (Negative); Urine Bilirubin Dipstick Negative (Negative); Urine Clarity Sl. Cloudy (Clear); Urine Urobilinogen Normal (Normal)
[2024-05-31 14:26] LABS: Red Blood Cells-Urine 0 SEEN /hpf (0-5)
[2024-05-31 14:27] LABS: Reflex Troponin-HS? (from REC) Y
[2024-05-31 14:35] VITALS: BP 111/65; PULSE 84; RESP 15; O2SAT 99
[2024-05-31 15:07] LABS: Troponin-I HS 3 pg/mL (3.0-78.0)
[2024-05-31 15:35] VITALS: BP 126/82; PULSE 69; RESP 16; TEMP 36.6; O2SAT 100
== END 2024-05-31 15:35 | disposition home or self-care (01) ==
PROVIDERS: Emergency Provider Emergency Medicine; PCP Nurse Practitioner Family; Visit Provider Emergency Medicine
DX: R07.9 Chest pain, unspecified (principal); I10 Essential (primary) hypertension; M54.50 Low back pain, unspecified; G47.33 Obstructive sleep apnea (adult) (pediatric); F41.9 Anxiety disorder, unspecified; R06.02 Shortness of breath; R00.2 Palpitations; R53.1 Weakness; F17.210 Nicotine dependence, cigarettes, uncomplicated; Z79.899 Other long term (current) drug therapy
CPT/HCPCS: 71045; 72100; 80048; 81001; 84484; 85025; 93005; 99284; A4216